=== PATIENT | male | born 1965 | race Caucasian/White ===

== ENCOUNTER → 2017-06-08 08:05 | Outpatient (CLI) | payer OTHER, SELFPAY ==
--- NOTE | 2017-06-08 08:17 | RAD_ITS ---
STUDY: X-RAY CHEST REASON FOR EXAM: Male, 52 years old. History of inflammatory polyarthropathy. TECHNIQUE: PA and lateral views of the chest. COMPARISON: None. FINDINGS: The lungs are clear and expanded. There is no demonstrated pleural abnormality. Normal size heart. Normal mediastinum and dave. Normal visualized pulmonary arteries. Normal visualized aortic arch and descending thoracic aorta. Normal visualized thoracic spine. Metallic clips are seen in the right humeral head most likely secondary to prior rotator cuff surgery. There is no demonstrated abnormality of the visualized soft tissue structures of the upper abdomen. RAD/Chest PA and Lateral IMPRESSION: Normal x-ray examination of the chest. Electronically Signed: Zhang Henderson MD at 11:19 EST Tel [phone], Service support ,
[2017-06-11 04:15] LABS: QNTFERON TB Ag Minus Nil Value < 0 IU/mL (.); QNTFERON TB Ag Value 0.03 IU/mL (.); QNTFERON TB Mitogen Value > 10.00 IU/mL (.); QNTFERON TB Nil Value 0.06 IU/mL (.)
[2017-06-11 10:45] LABS: QNTIFERON TB Gold Negative (Negative)
== END ==
PROVIDERS: Family Provider Physician Assistant; PCP Physician Assistant; Visit Provider Internal Medicine Rheumatology
DX: M06.4 Inflammatory polyarthropathy (principal); M51.37 Other intervertebral disc degeneration, lumbosacral region; M21.40 Flat foot [pes planus] (acquired), unspecified foot; M10.9 Gout, unspecified; I10 Essential (primary) hypertension; F41.9 Anxiety disorder, unspecified; Z79.899 Other long term (current) drug therapy
CPT/HCPCS: 36415; 71046; 86480

== ENCOUNTER → 2017-06-30 08:21 | Outpatient (CLI) | payer OTHER, SELFPAY ==
--- NOTE | 2017-06-30 08:23 | US_ITS ---
STUDY: RENAL ULTRASOUND - COMPLETE REASON FOR EXAM: Male, 52 years old. Flank pain TECHNIQUE: Transverse and longitudinal imaging of the kidneys and bladder was obtained using real-time ultrasound. COMPARISON: None. FINDINGS: RIGHT KIDNEY: The right kidney is normal in location. The right kidney measures 11.6 x 6.2 x 5.2 cm. The renal cortex is normal in appearance. The renal cortex measures 2.0 cm. There is no demonstrated renal mass. There is no dilatation of the collecting system. LEFT KIDNEY: The left kidney is normal in location. The left kidney measures 14.6 x 6.2 x 4.3 cm. The renal cortex is normal in appearance. The renal cortex measures 2.4 cm. There is a benign simple cyst off the midpole of the left kidney measuring 2.9 x 3.1 x 2.8 cm. There is a cyst or prominent extrarenal pelvis on the left measuring 2.1 x 2.7 x 1.8 cm. There is no dilatation of the collecting system. BLADDER: The urinary bladder has a volume of 97 ml. The bladder shows a normal wall thickness. There is no demonstrated mass in the bladder. The right ureteral jet was not demonstrated. The left ureteral jet was not demonstrated. US/Kidney and Bladder IMPRESSION: The left kidney is larger than the right, and a duplicated system cannot be excluded in the left kidney. There is no evidence of hydronephrosis, however there may be a prominent extrarenal pelvis in the lower collecting system on the left side. Electronically Signed: Khalida Fierro MD at 17:10 EST Tel Direct: [phone], Service support ,
== END ==
PROVIDERS: Family Provider Physician Assistant; PCP Physician Assistant; Visit Provider Nurse Practitioner Adult Health
DX: R39.89 Other symptoms and signs involving the genitourinary system (principal); Z87.448 Personal history of other diseases of urinary system
CPT/HCPCS: 76770

== ENCOUNTER → 2017-07-27 15:19 | Outpatient (CLI) | payer OTHER, SELFPAY ==
[2017-07-27 15:51] LABS: Absolute Neutrophil Count 3.3 X10^3/uL (2.0-7.7); Basophil# 0.03 X10^3/uL; Basophil% 0.5 % (0-1); Eosinophil# 0.11 X10^3/uL; Eosinophils% 1.9 % (0-5); Hematocrit 40.3 % (40-54); Hemoglobin 13.9 g/dl (13.0-16.5); Lymphocyte % 30.1 % (19-41); Mean Corp Hgb Conc 34.5 g/gl (32-36); Mean Corpuscular Hgb 31.7 pg (27.0-32.0); Mean Corpuscular Volume 91.8 fL (80-94); Monocyte# 0.53 X10^3/uL; Monocyte% 9.4 % (0-10); Neutrophil # 3.26 X10^3/uL (2.7-7.7); Neutrophil % 57.7 % (47-70); Platelet Count 237 K/mm3 (150-450); RBC Distribution Width CV 13.3 % (11.6-14.6); Red Blood Count 4.39 M/mm3 (4.6-6.2); White Blood Count 5.7 K/mm3 (4.4-11.0)
[2017-07-27 15:54] LABS: POSITIVE COUNT NO; POSITIVE DIFFERENTIAL NO; POSITIVE MORPHOLOGY NO
[2017-07-27 16:24] LABS: AST(SGOT) 28 U/L (15-37); Alanine Aminotransfer ALT/SGPT 49 U/L (16-61); Albumin, Serum 3.5 g/dL (3.2-5.0); Alkaline Phosphatase 47 U/L (45-117); Anion Gap 7 (5-15); BUN 22 mg/dL (7-18); Calcium,Total 8.5 mg/dL (8.5-10.1); Chloride 110 mmol/L (98-107); Creatinine, Serum 0.78 mg/dL (0.70-1.30); EST Glomerular Filtration Rate 109 mL/min (>60); Est Glom Filt Rate - Afr Amer 132 mL/min (>60); Globulin 3.4 g/dL (2.2-4.2); Glucose 90 mg/dL (74-106); PSA,Total- Diagnostic 1.51 ng/mL (0.0-4.0); Protein, Total 6.9 g/dL (6.4-8.2); Sodium Level 144 mmol/L (136-145)
== END ==
PROVIDERS: Family Provider Nurse Practitioner Primary Care; PCP Nurse Practitioner Primary Care; Visit Provider Nurse Practitioner Adult Health
DX: R97.20 Elevated prostate specific antigen [PSA] (principal); M06.09 Rheumatoid arthritis without rheumatoid factor, multiple sites; M51.37 Other intervertebral disc degeneration, lumbosacral region; M21.40 Flat foot [pes planus] (acquired), unspecified foot; M10.9 Gout, unspecified; I10 Essential (primary) hypertension; F41.9 Anxiety disorder, unspecified
CPT/HCPCS: 36415; 80053; 84153; 85025

== ENCOUNTER → 2017-10-26 08:05 | Outpatient (CLI) | payer OTHER, SELFPAY ==
[2017-10-26 10:24] LABS: Absolute Lymphocyte Count 1.62 X10^3/ul (0.83-4.51); Absolute Neutrophil Count 2.6 X10^3/uL (2.0-7.7); Basophil# 0.03 X10^3/uL; Basophil% 0.6 % (0-1); Eosinophil# 0.12 X10^3/uL; Eosinophils% 2.5 % (0-5); Hematocrit 44.8 % (40-54); Hemoglobin 14.9 g/dl (13.0-16.5); Lymphocyte # 1.62 X10^3/ul (4.0); Lymphocyte % 34.3 % (19-41); Mean Corp Hgb Conc 33.3 g/gl (32-36); Mean Corpuscular Hgb 31.4 pg (27.0-32.0); Mean Corpuscular Volume 94.3 fL (80-94); Mean Platelet Vol. 11.5 fl (6.2-12.0); Monocyte# 0.39 X10^3/uL; Monocyte% 8.3 % (0-10); Neutrophil # 2.55 X10^3/uL (2.7-7.7); Neutrophil % 54.1 % (47-70); Platelet Count 197 K/mm3 (150-450); RBC Distribution Width CV 13.5 % (11.6-14.6); Red Blood Count 4.75 M/mm3 (4.6-6.2); White Blood Count 4.7 K/mm3 (4.4-11.0)
[2017-10-26 10:36] LABS: POSITIVE COUNT NO; POSITIVE DIFFERENTIAL NO; POSITIVE MORPHOLOGY NO
[2017-10-26 10:38] LABS: AST(SGOT) 29 U/L (15-37); Alanine Aminotransfer ALT/SGPT 59 U/L (16-61); Albumin, Serum 3.5 g/dL (3.2-5.0); Alkaline Phosphatase 38 U/L (45-117); Anion Gap 8 (5-15); BUN 19 mg/dL (7-18); Calcium,Total 8.5 mg/dL (8.5-10.1); Chloride 106 mmol/L (98-107); Creatinine, Serum 0.79 mg/dL (0.70-1.30); EST Glomerular Filtration Rate 108 mL/min (>60); Est Glom Filt Rate - Afr Amer 131 mL/min (>60); Globulin 3.4 g/dL (2.2-4.2); Glucose 108 mg/dL (74-106); Potassium 4.1 mmol/L (3.5-5.1); Protein, Total 6.9 g/dL (6.4-8.2); Sodium Level 142 mmol/L (136-145)
== END ==
PROVIDERS: Family Provider Nurse Practitioner Primary Care; PCP Nurse Practitioner Primary Care; Visit Provider Internal Medicine Rheumatology
DX: M10.9 Gout, unspecified (principal); I10 Essential (primary) hypertension; F41.9 Anxiety disorder, unspecified; Z79.899 Other long term (current) drug therapy
CPT/HCPCS: 36415; 80053; 85025

== ENCOUNTER 2017-11-23 11:30 | Emergency (ER) | payer OTHER, SELFPAY ==
[2017-11-23 11:32] VITALS: BP 109/76; PULSE 94; RESP 15; TEMP 36.4; O2SAT 98; BMI 27.9
--- NOTE | 2017-11-23 12:52 | EKG12_ITS ---
Test Reason : Blood Pressure : / mmHG Vent. Rate : 070 BPM Atrial Rate : 070 BPM P-R Int : 160 ms QRS Dur : 086 ms QT Int : 374 ms P-R-T Axes : 025 069 050 degrees QTc Int : 403 ms Normal sinus rhythm Normal ECG Confirmed by ALFREDA WYATT, DEEPAK ([id number]), material expeditor FABIO GALDAMEZ ([id number]) on 11/25/2017 1:37:44 PM Referred By: TANG Confirmed By:DEEPAK GANT MD
[2017-11-23] MEDS: Morphine 4 MG/ML Syringe IV (13:23)
[2017-11-23] MEDS: 0.9% Normal Saline 1,000 ML 1000 ML IV (13:23)
[2017-11-23] MEDS: Ondansetron 4 MG/2 ML Vial IV (13:24)
[2017-11-23 13:43] LABS: Bacteria 0 SEEN /hpf (None Seen); Mucous, Urine 0 SEEN /hpf (<or=2+); Squamous Epithelial Cells - UA 0 SEEN /hpf (0-5); White Blood Cells 0 SEEN /hpf (0-5)
[2017-11-23 13:46] LABS: Color, Urine Yellow (Yellow); Glucose, Dipstick Normal (Normal); Ketone-Dipstick Negative (Negative); Leukocyte Esterase-Dipstick Negative /ul (Negative); Nitrite-Dipstick Negative (Negative); Occult Blood-Urine Negative /ul (Negative); Protein-Dipstick Negative (Negative); Urine Bilirubin Dipstick Negative (Negative); Urine Clarity Clear (Clear); Urine Urobilinogen Normal (Normal)
[2017-11-23 13:49] LABS: Absolute Lymphocyte Count 2.01 X10^3/ul (0.83-4.51); Absolute Neutrophil Count 7.6 X10^3/uL (2.0-7.7); Basophil# 0.03 X10^3/uL; Basophil% 0.3 % (0-1); Eosinophil# 0.08 X10^3/uL; Eosinophils% 0.8 % (0-5); Hematocrit 49.8 % (40-54); Hemoglobin 16.6 g/dl (13.0-16.5); Lymphocyte # 2.01 X10^3/ul (4.0); Lymphocyte % 19.1 % (19-41); Mean Corp Hgb Conc 33.3 g/gl (32-36); Mean Corpuscular Hgb 31.9 pg (27.0-32.0); Mean Corpuscular Volume 95.8 fL (80-94); Mean Platelet Vol. 10.6 fl (6.2-12.0); Monocyte# 0.84 X10^3/uL; Neutrophil # 7.57 X10^3/uL (2.7-7.7); Neutrophil % 71.7 % (47-70); Platelet Count 240 K/mm3 (150-450); RBC Distribution Width CV 13.6 % (11.6-14.6); RBC Distribution Width SD 46.9 fl (35.1-43.9); White Blood Count 10.5 K/mm3 (4.4-11.0)
[2017-11-23] MEDS: Lidocaine 4% 5 ML Ampul 2 ML INHALATION (13:49)
[2017-11-23 13:51] LABS: POSITIVE COUNT NO; POSITIVE DIFFERENTIAL NO; POSITIVE MORPHOLOGY NO
[2017-11-23 13:58] LABS: International Normalized Ratio 0.9; Prothrombin Time (Protime)PT. 12.1 SECONDS (11.7-14.9)
[2017-11-23 14:01] LABS: Red Blood Cells-Urine 0-5 SEEN /hpf (0-5)
[2017-11-23 14:02] LABS: ALB/GLOB Ratio 0.9 RATIO (0.9-2.4); AST(SGOT) 19 U/L (15-37); Alanine Aminotransfer ALT/SGPT 43 U/L (16-61); Albumin, Serum 3.9 g/dL (3.2-5.0); Alkaline Phosphatase 54 U/L (45-117); Anion Gap 5 (5-15); BUN 23 mg/dL (7-18); BUN/Creat Ratio 24.2 RATIO (10-20); Calcium,Total 9.6 mg/dL (8.5-10.1); Chloride 100 mmol/L (98-107); Creatinine, Serum 0.95 mg/dL (0.70-1.30); EST Glomerular Filtration Rate 87 mL/min (>60); Est Glom Filt Rate - Afr Amer 106 mL/min (>60); Estimated Creatinine Clearance 91.78 ml/min; Globulin 4.2 g/dL (2.2-4.2); Glucose 98 mg/dL (74-106); Lipase 182 U/L (73-393); Potassium 4.3 mmol/L (3.5-5.1); Protein, Total 8.1 g/dL (6.4-8.2); Sodium Level 138 mmol/L (136-145)
[2017-11-23] MEDS: LORazepam 2 MG/ML Syringe 1 MG IV (14:15)
--- NOTE | 2017-11-23 14:26 | CT_ITS ---
STUDY: CTA CHEST REASON FOR EXAM: Male, 52 years old. Acute substernal chest pain RADIATION DOSAGE (If Supplied By Facility): CTDIvol = ( 12.80 ) mGy, DLP = ( 667.13 ) mGycm TECHNIQUE: The examination was performed with the intravenous administration of 100ML ml of Isovue 300 contrast material. Post-processing of the angiographic images was performed, with multiplanar reformation and 3D reconstruction. Individualized dose optimization techniques were used for this CT. COMPARISON: None. FINDINGS: Normal enhancement of the main pulmonary artery and right and left pulmonary arteries. Normal enhancement of the bilateral peripheral pulmonary arteries. There is no demonstrated pulmonary embolism. Normal thoracic aorta and visualized great vessels. There is no demonstrated aortic dissection. Normal heart and pericardium. Normal mediastinum. Normal hilar regions. There is peribronchial thickening. The lungs are well expanded. Chronic interstitial changes noted in both lung mckenzie, there is fibrotic scarring in the left lung base. No organized infiltrate or suspicious noncalcified mass or nodule noted. Normal pleura. Normal chest wall structures. There are degenerative changes of thoracic spine. Normal visualized upper abdomen. CT/CTA Chest W/WO Contrast IMPRESSION: No demonstrated PE, or thoracic aortic aneurysm or dissection Chronic interstitial changes in both lung mckenzie, no superimposed acute pulmonary process Evidence of chronic bronchitis Electronically Signed: Jose Willis MD at 15:40 EDT , Service support ,
--- NOTE | 2017-11-23 15:59 | ED.DCSUM_ITS ---
- ER Visit Summary Date of Service: 11/23/17 Chief Complaint: [Spitting up coffee ground material] History of Present Illness: The patient is a 52 M [who woke up this morning and spit out a bunch of dirt and coffee ground appearing material. No lightheadedness or dizziness. He has been having back pain epigastric abdominal pain for quite some time. He does have rheumatoid arthritis and is on Enbrel as well as methotrexate. He is prescribed prednisone and meloxicam but has not taken it for quite some time. He is in pain management done injection recently did not help his back pain.] Physical Examination: [] Afebrile vital signs within acceptable limits WN WD NAD PERRL EOMI MMM NECK supple and nontender, no masses RRR no murmur rub or gallop, no peripheral edema, symmetric radial pulses CTAB no respiratory distress ABDOMEN mild epigastric tenderness, normal bowel sounds, no distension, no rebound or guarding SKIN is warm and dry no rashes Alert and Oriented x3, CN II-XII in tact, no motor or sensory deficits, gait normal No lymphadenopathy Test Results: [] Emergency Department Course and Treatment: [Screening labs were obtained and were unremarkable. NG was placed and was clear. At that time because of his back pain and unclear nature of this breathing bleeding CTA was performed show no evidence of PE or other acute abnormality in the lungs. Patient was feeling much better. I will refer him to gastroenterology. I did give him careful indications for which she should return to the emergency department invited them to come back at any time for any concerns.] Treatment Plan: [] Disposition: [Discharge] Impression: [Hematemesis] This note was generated with [employer] dictation software. It may contain incorrect words, spelling, and punctuation that were not noted in review of the chart prior to signing ED Disposition - Plan for ED Patient: Chief Complaint: GI Bleed Referrals: Jen Mcadams, SUMMER-C [Primary Care Provider] -
--- NOTE | 2017-11-23 16:05 | ED.DEP ---
ED Disposition - Plan for ED Patient: Chief Complaint: GI Bleed Instructions: ED Bleed UGI Stable Referrals: Jen Mcadams, SUMMER-Sariah [Primary Care Provider] - Home Sampson MD [NON-STAFF] - 5-7 Days
[2017-11-23 16:25] VITALS: BP 139/79; PULSE 85; RESP 18; O2SAT 100
== END 2017-11-23 16:26 | disposition home or self-care (01) ==
LOC: ED 13:04
PROVIDERS: Emergency Provider Emergency Medicine; Family Provider Nurse Practitioner Primary Care; PCP Nurse Practitioner Primary Care
DX: K92.0 Hematemesis (principal); R10.13 Epigastric pain; M54.9 Dorsalgia, unspecified; M06.9 Rheumatoid arthritis, unspecified; I10 Essential (primary) hypertension; M10.9 Gout, unspecified; Z79.899 Other long term (current) drug therapy
CPT/HCPCS: 71275; 80053; 81001; 83690; 85025; 85610; 93005; 96361; 96374; 96375; 99285; J7030; Q9967; A4216; J2405

== ENCOUNTER → 2018-01-12 15:20 | Outpatient (CLI) | payer OTHER, SELFPAY ==
--- NOTE | 2018-01-12 15:25 | MRI_ITS ---
STUDY: MRI LUMBAR SPINE WITHOUT CONTRAST REASON FOR EXAM: Male, 53 years old. Spinal stenosis TECHNIQUE: Standardized fat and water weighted pulse sequences were obtained in the sagittal and axial planes. COMPARISON: None FINDINGS: No evidence for acute fracture or subluxation. There is interosseous hemangioma within the L4 vertebral body T12-L1: Normal endplates. Normal disc height, hydration and morphology. Normal bilateral facet joints. Normal central canal and bilateral lateral recesses. Normal bilateral intervertebral neural foramina. Normal lumbar lordosis. There is no substantial scoliosis. Normal conus medullaris that terminates at T12-L1 L1-2: Normal endplates. Normal disc height, hydration and morphology. Normal bilateral facet joints. Normal central canal and bilateral lateral recesses. Normal bilateral intervertebral neural foramina. L2-3: Normal endplates. Normal disc height, hydration and minimal annular bulge with tiny right foraminal annular tear and disc protrusion. Normal bilateral facet joints. Normal central canal and bilateral lateral recesses.. Mild right neuroforaminal encroachment L3-4: Normal endplates. Normal disc height, desiccation and mild annular bulge. Mild facet arthropathy.. Moderate bilateral recess and mild neural foraminal encroachment L4-5: Normal endplates. Normal disc height, desiccation and moderate bulging disc osteophyte complex. Bilateral facet arthropathy and mild thickening of ligamenta flava. Mild narrowing of the central canal. Moderate bilateral recess and neuroforaminal stenosis. L5-S1: Normal endplates. Normal disc height, hydration and minor annular bulge with tiny central disc protrusion. Mild facet arthropathy.. Normal central canal. Mild bilateral recess encroachment. Normal bilateral intervertebral neural foramina. Normal visualized sacral ala. Normal visualized paraspinous soft tissue structures. MRI/Spine Lumbar (Routine) IMPRESSION: No evidence for acute fracture or dictation per Multilevel disc degeneration and spinal stenosis secondary to disc disease and bony hypertrophy. Findings as above Electronically Signed: Malick Wolfe MD at 17:06 EDT , Service support ,
--- NOTE | 2018-01-12 15:25 | MRI_ITS ---
STUDY: MRI THORACIC SPINE WITHOUT CONTRAST REASON FOR EXAM: Male, 53 years old. Mid back pain TECHNIQUE: Standardized fat and water weighted pulse sequences were obtained in the sagittal and axial planes. COMPARISON: None. FINDINGS: Normal kyphosis of the thoracic spine. There is no substantial scoliosis. There is minor chronic wedging of superior endplate of T5. There is no evidence for acute fracture or other significant bony pathology. The disc space heights are well-maintained. There is mild diffuse desiccation of the discs at all levels. There is no focal disc protrusion. There is spinal stenosis posteriorly at T9-T10 and T10-11 due to thickening of the ligaments Normal visualized thoracic cord. Normal conus medullaris that terminates at T12-L1 The soft tissue structures are unremarkable. MRI/Spine Thoracic (Routine) IMPRESSION: Minor chronic wedging of superior endplate of T5 No evidence for acute fracture or other significant bony pathology. There is spinal stenosis at T9-10 and T10-11 due to thickening of the posterior ligaments No focal disc protrusion or cord compression Electronically Signed: Malick Wolfe MD at 16:47 EDT , Service support ,
== END ==
PROVIDERS: Family Provider Nurse Practitioner Primary Care; PCP Nurse Practitioner Primary Care; Visit Provider Nurse Practitioner Primary Care
DX: M48.05 Spinal stenosis, thoracolumbar region (principal)
CPT/HCPCS: 72146; 72148

== ENCOUNTER 2018-05-05 13:52 | Emergency (ER) | payer OTHER, SELFPAY ==
[2018-05-05 13:53] VITALS: BP 143/83; PULSE 79; RESP 16; TEMP 36.8; O2SAT 96; BMI 29.9
[2018-05-05] MEDS: Diphth,Pertuss(Acell),Tet Vac 0.5 ML Vial IM (14:43)
--- NOTE | 2018-05-05 14:45 | DCINST.ED_ITS ---
ED Disposition - Plan for ED Patient: Disposition: Home or Assisted Living Chief Complaint: Laceration Instructions: ED Laceration Scalp Stitch Or Stap Referrals: Jen Mcadams, MECHANICAL MAINTENANCE FOREMAN-C [Primary Care Provider] -
--- NOTE | 2018-05-05 14:45 | ED.DCSUM_ITS ---
- ER Visit Summary Date of Service: 05/05/18 Chief Complaint: Head injury History of Present Illness: The patient is a 53 M who presents with a head injury. 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 He sustained a laceration to his scalp. Denies LOC. His tetanus is unknown. Denies any symptoms other than the laceration. Physical Examination: Vital signs are reviewed. Head exam reveals a 6 cm in total length V-shaped laceration to the crown of the scalp. There is no bleeding at this time. His GCS is 15. Neurologic exam normal. Test Results: None performed Emergency Department Course and Treatment: The patient's tetanus was updated. 10, 4?0 simple interrupted sutures were placed. See T-sheet for further details. He will have these out in 7 days. Worker's Compensation forms were completed. Treatment Plan: [] Disposition: Discharge Impression: Scalp laceration, 6 cm Laceration repair by ED physician This note was generated with [employer] dictation software. It may contain incorrect words, spelling, and punctuation that were not noted in review of the chart prior to signing ED Disposition - Plan for ED Patient: Chief Complaint: Laceration Referrals: Jen Mcadams NP-C [Primary Care Provider] -
== END 2018-05-05 15:02 | disposition home or self-care (01) ==
LOC: ED 14:59
PROVIDERS: Emergency Provider Emergency Medicine; Family Provider Nurse Practitioner Primary Care; PCP Nurse Practitioner Primary Care
DX: S01.01XA Laceration without foreign body of scalp, initial encounter (principal); W22.8XXA Striking against or struck by other objects, initial encounter; Y93.89 Activity, other specified; Y92.9 Unspecified place or not applicable; Y99.0 Civilian activity done for income or pay; I10 Essential (primary) hypertension; M10.9 Gout, unspecified; Z79.899 Other long term (current) drug therapy
CPT/HCPCS: 12002; 90715; 99282

== ENCOUNTER 2018-08-07 10:07 | Emergency (ER) | payer OTHER, SELFPAY ==
[2018-08-07 10:07] VITALS: BP 144/82; PULSE 68; RESP 18; TEMP 36.6; O2SAT 98; BMI 28.4
[2018-08-07 10:14] VITALS: BP 137/88; PULSE 65; RESP 17
--- NOTE | 2018-08-07 10:18 | EKG12_ITS ---
Test Reason : CP Blood Pressure : / mmHG Vent. Rate : 061 BPM Atrial Rate : 061 BPM P-R Int : 170 ms QRS Dur : 082 ms QT Int : 410 ms P-R-T Axes : 030 073 054 degrees QTc Int : 412 ms Normal sinus rhythm Normal ECG Confirmed by ALFREDA WYATT, DEEPAK ([id number]), image editor MARTHA COPPOLA ([id number]) on 08/09/2018 1:17:26 PM Referred By: URIAH Confirmed By:DEEPAK GANT MD
--- NOTE | 2018-08-07 10:18 | RAD_ITS ---
STUDY: X-RAY CHEST REASON FOR EXAM: Male, 53 years old. Chest pain TECHNIQUE: Single frontal view of the chest. COMPARISON: June 08, 2017 FINDINGS: The lungs are clear and expanded. There is no demonstrated pleural abnormality. Normal size heart. Normal mediastinum and dave. Normal visualized pulmonary arteries. Normal visualized aortic arch and descending thoracic aorta. Normal visualized thoracic spine. Right rotator cuff repair. Remote deformity of the left clavicle. There is no demonstrated abnormality of the visualized soft tissue structures of the upper abdomen. RAD/Chest 1 View (Portable) IMPRESSION: No acute pulmonary findings. Electronically Signed: Kiko Mckinney MD at 10:48 EDT Tel , Service support ,
--- NOTE | 2018-08-07 10:21 | ED.DCSUM_ITS ---
- ER Visit Summary Date of Service: 08/07/18 Chief Complaint: Chest pain History of Present Illness: The patient is a 53 M with history of anxiety presents to the emergency department chest pain. Patient states of the past 5 days, he had intermittent chest pain. He also admits to some mild shortness of breath. He states that his anxiety has been rather significant. He is been under a lot of stress at work. The symptoms are not exertional. He states if he rests, they will go away. If he concentrates on his breathing it seems to make it better. He has no history of coronary vascular disease. He does have history of hypertension. He has no family history of heart disease. He is also been complaining of some midepigastric pain and pain with eating. Physical Examination: Vital signs reviewed General: Well-nourished, well-developed Head: Normocephalic, atraumatic Eyes: Pupils equal and reactive, extraocular muscles intact Neck, supple, no lymphadenopathy Heart: Regular rate and rhythm Respiratory: No distress, clear bilaterally Abdomen: Soft, nontender, nondistended, no peritoneal signs Back: Nontender Extremities: Nontender, no edema, no cords Skin: Normal color no rash Neuro: Alert and oriented, no focal or lateralizing deficits Test Results: [] Emergency Department Course and Treatment: The patient's chest pain does not seem cardiac. However, given his age I did do workup. EKG was unremarkable. There is no acute ischemia. Normal axis and intervals. Patient's only risk factor is hypertension which is well controlled. He is been under significant amount of stress lately. He had to take his son to [place] for hospitalization last week and has been having difficulties at work. He was given 0.5 mg of Ativan. On reevaluation he was symptom-free. Screening labs are unremarkable. The patient is resting comfortably. He had constant pain for 8 hours today. My suspicion for acute coronary syndrome is low. I do feel that he is safe for outpatient therapy. He was counseled on concerning symptoms and reasons to return. He has a heart score of 2. He will be discharged home. Treatment Plan: [] Disposition: Discharge Impression: 1. Atypical chest pain This note was generated with Vibes[employer] software. It may contain incorrect words, spelling, and punctuation that were not noted in review of the chart prior to signing ED Disposition - Plan for ED Patient: Instructions: ED Chest Pain Atypical Unkn Cause Prescriptions: Omeprazole 40 mg PO DAILY #30 capsule. Lorazepam [Ativan] 0.5 mg PO TID #10 tab Sucralfate [Carafate] 1 gm PO 4X/DAY #60 tab Referrals: Jen Mcadams, SENIOR INTERACTIVE PRODUCER-C [Primary Care Provider] -
[2018-08-07 10:29] LABS: Absolute Lymphocyte Count 1.43 X10^3/ul (0.83-4.51); Absolute Neutrophil Count 3.5 X10^3/uL (2.0-7.7); Basophil# 0.03 X10^3/uL; Basophil% 0.5 % (0-1); Eosinophil# 0.05 X10^3/uL; Eosinophils% 0.9 % (0-5); Hematocrit 45.3 % (40-54); Hemoglobin 15.4 g/dl (13.0-16.5); Lymphocyte # 1.43 X10^3/ul (4.0); Lymphocyte % 26.2 % (19-41); Mean Corpuscular Hgb 30.9 pg (27.0-32.0); Mean Platelet Vol. 11.1 fl (6.2-12.0); Monocyte# 0.49 X10^3/uL; Neutrophil # 3.45 X10^3/uL (2.7-7.7); Neutrophil % 63.2 % (47-70); Platelet Count 199 K/mm3 (150-450); RBC Distribution Width CV 13.3 % (11.6-14.6); RBC Distribution Width SD 43.7 fl (35.1-43.9); Red Blood Count 4.98 M/mm3 (4.6-6.2); White Blood Count 5.5 K/mm3 (4.4-11.0)
[2018-08-07] MEDS: LORazepam 2 MG/ML Syringe 0.5 MG IV (10:32)
[2018-08-07] MEDS: Aspirin 81 MG TAB.CHEW 324 MG PO (10:32)
[2018-08-07] MEDS: 0.9% Normal Saline 1,000 ML 150 ML IV (10:33)
[2018-08-07 10:47] LABS: ALB/GLOB Ratio 1.1 RATIO (0.9-2.4); AST(SGOT) 23 U/L (15-37); Alanine Aminotransfer ALT/SGPT 37 U/L (16-61); Albumin, Serum 3.8 g/dL (3.2-5.0); Alkaline Phosphatase 50 U/L (45-117); Anion Gap 2 (5-15); BUN 17 mg/dL (7-18); BUN/Creat Ratio 17.6 RATIO (10-20); Calcium,Total 8.9 mg/dL (8.5-10.1); Chloride 106 mmol/L (98-107); Creatinine, Serum 0.97 mg/dL (0.70-1.30); EST Glomerular Filtration Rate 86 mL/min (>60); Est Glom Filt Rate - Afr Amer 104 mL/min (>60); Estimated Creatinine Clearance 88.85 ml/min; Globulin 3.4 g/dL (2.2-4.2); Glucose 107 mg/dL (74-106); Lipase 130 U/L (73-393); Protein, Total 7.2 g/dL (6.4-8.2); Sodium Level 138 mmol/L (136-145)
[2018-08-07 11:13] VITALS: BP 125/86; PULSE 63; PULSE 65; RESP 13; RESP 20; O2SAT 98; O2SAT 99
== END 2018-08-07 11:29 | disposition home or self-care (01) ==
LOC: ED 11:24
PROVIDERS: Emergency Provider Emergency Medicine; Family Provider Family Medicine; PCP Family Medicine
DX: R07.89 Other chest pain (principal); F41.9 Anxiety disorder, unspecified; I10 Essential (primary) hypertension; K21.9 Gastro-esophageal reflux disease without esophagitis
CPT/HCPCS: 71045; 80053; 83690; 84484; 85025; 93005; 96361; 96374; 99285; J7030; A4216

== ENCOUNTER → 2018-08-28 09:42 | Outpatient (CLI) | payer OTHER, SELFPAY ==
[2018-08-07 10:07] VITALS: BMI 28.4
[2018-08-28 11:25] LABS: Vitamin D,25 Hydroxy 49.1 ng/mL (29.95-100.01)
[2018-08-31 08:10] LABS: Testosterone, Free 5.95 ng/dL (5.00-21.00)
[2018-09-01 12:55] LABS: Testosterone, % Free 2.93 % (1.50-4.20); Testosterone, Total 203 ng/dL (264-916)
== END ==
PROVIDERS: Family Provider Family Medicine; PCP Family Medicine; Visit Provider Family Medicine
DX: E29.1 Testicular hypofunction (principal); E55.9 Vitamin D deficiency, unspecified
CPT/HCPCS: 36415; 82306; 84402; 84403

== ENCOUNTER → 2018-10-25 09:14 | Outpatient (CLI) | payer OTHER, SELFPAY ==
[2018-10-25 12:33] LABS: Erythrocyte Sedimentation Rate 5 mm/hr (0-20)
[2018-10-25 12:53] LABS: Vitamin B12 292 pg/mL (211-911)
[2018-10-25 13:19] LABS: ALB/GLOB Ratio 1.1 RATIO (0.9-2.4); AST(SGOT) 21 U/L (15-37); Alanine Aminotransfer ALT/SGPT 32 U/L (16-61); Albumin, Serum 3.8 g/dL (3.2-5.0); Alkaline Phosphatase 49 U/L (45-117); Anion Gap 9 (5-15); BUN 26 mg/dL (7-18); BUN/Creat Ratio 30.1 RATIO (10-20); CRP < 2.90 mg/L (0.0-3.0); Chloride 106 mmol/L (98-107); Creatinine, Serum 0.86 mg/dL (0.70-1.30); EST Glomerular Filtration Rate 97 mL/min (>60); Est Glom Filt Rate - Afr Amer 118 mL/min (>60); Globulin 3.5 g/dL (2.2-4.2); Glucose 107 mg/dL (74-106); Potassium 4.2 mmol/L (3.5-5.1); Protein, Total 7.3 g/dL (6.4-8.2); Rheumatoid Factor < 10.0 IU/mL (<15); Sodium Level 141 mmol/L (136-145)
[2018-10-28 14:06] LABS: Testosterone, % Free 3.29 % (1.50-4.20); Testosterone, Free 3.75 ng/dL (5.00-21.00)
[2018-10-29 14:00] LABS: CCP IgG Antibodies < 1 units (0-19); Testosterone, Total 114 ng/dL (264-916)
== END ==
PROVIDERS: Family Provider Family Medicine; PCP Family Medicine; Visit Provider Family Medicine
DX: I10 Essential (primary) hypertension (principal); E29.1 Testicular hypofunction; M06.9 Rheumatoid arthritis, unspecified; G62.9 Polyneuropathy, unspecified
CPT/HCPCS: 36415; 80053; 82607; 84402; 84403; 85652; 86140; 86200; 86431

== ENCOUNTER → 2018-12-21 12:10 | Outpatient (CLI) | payer OTHER, SELFPAY ==
--- NOTE | 2018-12-21 13:53 | NEURO ---
NCS and/or EMG Patient Report Ordering Doctor: Mat Kitchen DATE OF SERVICE: 12/21/18 Roldan Patton is a 53-year-old male presents for electrodiagnostic testing of the lower limbs. He reports numbness and tingling in the thighs and buttocks which is intermittent. Electrodiagnostic findings: Peroneal motor nerve demonstrates normal distal latency, amplitude and conduction velocity bilaterally. Normal tibial motor response bilaterally. Normal peroneal and tibial F wave. Borderline prolonged H reflex bilaterally. Sensory responses within normal limits. On needle EMG, all muscles tested in the lower limbs as well as the lumbar paraspinal showed no evidence of denervation with normal motor unit action potentials. Next Electrodiagnostic impression: This is a normal electrodiagnostic study in the lower limbs. There is no electrodiagnostic evidence for peripheral neuropathy or lumbosacral radiculopathy. If there are any further questions, please do not hesitate to contact me.
== END ==
PROVIDERS: Family Provider Family Medicine; PCP Family Medicine; Referring Provider Family Medicine; Visit Provider Family Medicine
DX: R20.2 Paresthesia of skin (principal); G62.9 Polyneuropathy, unspecified
CPT/HCPCS: 95886; 95913

== ENCOUNTER → 2019-01-25 09:57 | Outpatient (CLI) | payer OTHER, SELFPAY ==
[2019-01-25 12:11] LABS: Absolute Lymphocyte Count 1.49 X10^3/uL (0.83-4.51); Absolute Neutrophil Count 4.4 X10^3/uL (2.0-7.7); Basophil# 0.06 X10^3/uL; Basophil% 0.9 % (0-1); Eosinophil# 0.08 X10^3/uL; Eosinophils% 1.2 % (0-5); Hematocrit 48.8 % (40-54); Hemoglobin 16.1 g/dL (13.0-16.5); Lymphocyte # 1.49 X10^3/ul (4.0); Mean Corpuscular Hgb 30.5 pg (27.0-32.0); Mean Corpuscular Volume 92.4 fL (80-94); Mean Platelet Vol. 11.8 fl (6.2-12.0); Monocyte# 0.46 X10^3/uL; Monocyte% 7.1 % (0-10); NRBC Flagged by Analyzer 0 % (0-5); Neutrophil # 4.36 X10^3/uL (2.7-7.7); Neutrophil % 67.5 % (47-70); Platelet Count 224 K/mm3 (150-450); RBC Distribution Width CV 12.9 % (11.6-14.6); RBC Distribution Width SD 43.8 fl (35.1-43.9); Red Blood Count 5.28 M/mm3 (4.6-6.2); White Blood Count 6.5 K/mm3 (4.4-11.0)
[2019-01-25 12:22] LABS: ALB/GLOB Ratio 0.9 RATIO (0.9-2.4); AST(SGOT) 16 U/L (15-37); Alanine Aminotransfer ALT/SGPT 32 U/L (16-61); Albumin, Serum 3.5 g/dL (3.2-5.0); Alkaline Phosphatase 51 U/L (45-117); Anion Gap 4 (5-15); BUN 12 mg/dL (7-18); BUN/Creat Ratio 13.4 RATIO (10-20); Calcium,Total 8.6 mg/dL (8.5-10.1); Chloride 109 mmol/L (98-107); EST Glomerular Filtration Rate 93 mL/min (>60); Est Glom Filt Rate - Afr Amer 113 mL/min (>60); Globulin 3.7 g/dL (2.2-4.2); Glucose 105 mg/dL (74-106); Protein, Total 7.2 g/dL (6.4-8.2); Sodium Level 140 mmol/L (136-145)
[2019-01-31 15:18] LABS: Testosterone, Free 54.81 ng/dL (5.00-21.00)
[2019-01-31 15:22] LABS: Testosterone, Total 1048 ng/dL (264-916)
[2019-01-31 15:23] LABS: Testosterone, % Free 5.23 % (1.50-4.20)
== END ==
PROVIDERS: Family Provider Family Medicine; PCP Family Medicine; Visit Provider Family Medicine
DX: E29.1 Testicular hypofunction (principal); Z51.81 Encounter for therapeutic drug level monitoring
CPT/HCPCS: 36415; 80053; 84402; 84403; 85025

== ENCOUNTER 2019-02-02 07:15 | Day surgery (SDC) | payer OTHER, SELFPAY ==
[2019-01-30 14:12] VITALS: BMI 28.4
[2019-02-02 07:35] VITALS: BP 131/90; PULSE 68; RESP 16; TEMP 36.7; O2SAT 100; BMI 29.0
[2019-02-02] MEDS: Lactated Ringers 1,000 ML 100 ML IV (07:44)
--- NOTE | 2019-02-02 07:55 | PCM.HP.BLA ---
Problem List (1) GERD (gastroesophageal reflux disease) Status: Acute Qualifiers: Esophagitis presence: esophagitis presence not specified Qualified Code(s): K21.9 - Gastro-esophageal reflux disease without esophagitis History and Physical Date of Admission: 02/02/19 Intake Vital Signs 01/30/19 Body Mass Index (BMI) 28.4 01/30/19 Height 5 ft 10 in 01/30/19 Weight: 200 lb 3 oz 01/30/19 Body Mass Index (BMI) 28.7 01/30/19 Blood Pressure 115/75 01/30/19 Blood Pressure Location Rt brachial 01/30/19 Respiratory Rate 18 01/30/19 Pulse Rate 79 01/30/19 Pulse Ox 96 Intake Visit Reasons: Reflux Chief Complaint: epigastric pain/ gerd Corncob Pipe Supervisor Required: No Is patient in pain?: No Allergies erythromycin base Allergy (Verified 01/30/19 14:09) Hives Penicillins [PCN] Allergy (Verified 01/30/19 14:09) Hives Medications Allopurinol 1 tab PO DAILY 11/23/17 [History Confirmed 01/30/19] Lisinopril 20 mg PO DAILY 11/23/17 [History Confirmed 01/30/19] Escitalopram Oxalate 10 mg PO DAILY 08/07/18 [History Confirmed 01/30/19] Lorazepam [Ativan] 0.5 mg PO TID #10 tab 08/07/18 [Rx Confirmed 01/30/19] esomeprazole magnesium 20 mg capsule,delayed release 40 mg PO DAILY cap 01/30/19 [History Confirmed 01/30/19] sucralfate 1 gram tablet 1 g PO QACHS #120 tab 01/30/19 [Rx Confirmed 01/30/19] PFSH Medical History (Updated 01/30/19 @ 14:00 by Tia Tijerina) Anxiety (Acute) GERD (gastroesophageal reflux disease) (Acute) HTN (hypertension) (Chronic) Surgical History (Updated 01/30/19 @ 14:00 by Tia Tijerina) History of colonoscopy (Acute ~2012) History of esophagogastroduodenoscopy (EGD) (Acute) History of kidney surgery (Acute) History of repair of right rotator cuff (Acute) Family History (Updated 01/30/19 @ 14:00 by Tia Tijerina) Mother Hypertension Social History (Updated 02/01/19 @ 09:42 by Uriel Hooker MD) Smoking Status: Never smoker HPI HPI HPI: GUILLERMINA KRAFT, is a 54 M who presents to the office today for HPI HPI Surgical H&P: Yes HPI: GUILLERMINA KRAFT, is a 54 M who presents to the office today for GERD. Patient notes that he is having epigastric pain and reflux. He says this is been going on for a long time. He was started on Nexium and he thinks Carafate but he was never actually taken the Carafate. He reports the Nexium has helped somewhat. He also takes daily ibuprofen. ROS General General: Yes fatigue; no weight change, appetite, colon cancer, breast cancer or weakness HEENT HEENT: No difficulty swallowing, eye injury, eye surgery, swollen glands or hoarseness Endo Endocrine: No thyroid disease, diabetes mellitus, thyroid cancer, Hair loss, heat intolerance or cold intolerance Cardio Cardiovascular: Yes high blood pressure; no murmur, pacemaker, heart disease, atrial fibrillation, heart attack, heart stent, palpitations, shortness of breat with exertion or chest pain Psych Psychiatric: Yes anxiety; no depression or hearing voices Resp Respiratory: No shortness of breath, No sleep apnea, Yes cough, No COPD, No asthma, No emphysema, No wheezing Gastro Gastrointestinal: Yes abdominal pain, Yes nausea or vomiting, No diarrhea, No constipation, No blood in stool, Yes acid reflux, No hemorrhoids, No ulcers, No gallbladder problem, No black,tarry stools Ben Hematologic: No blood thinners, No blood disorders, No bleeding, No anemia, No blood clots Neuro Neurologic: No weakness Exam Const General: cooperative Orientation: alert, oriented x3 Resp Effort & Inspection: normal respiratory effort Auscultation: clear to auscultation bilaterally Cardio Rate: regular rate Rhythm: regular rhythm Heart Sounds: no murmurs GI Inspection: non-distended Palpation: soft, nontender Assessment & Plan Problems 1. Gastroesophageal reflux disease, esophagitis presence not specified K21.9 Plan Patient has long-standing GERD and would like EGD to rule out long-standing esophagitis. I have also ordered him a prescription of Carafate. I have also advised him to decrease his ibuprofen usage. I explained endoscopy in detail to the patient. I explained the risks including but not limited to stroke or heart attack with anesthesia, perforation of the GI tract, bleeding, infection. I explained that any of these could necessitate further emergency surgery. The patient understands and all questions were answered sufficiently. The patient wishes to proceed with procedure. Uriel Hooker MD Pager: [facility] [address] [place] [address] [address] [place] [address] Office:
--- NOTE | 2019-02-02 08:30 | EGD_PTH ---
PATIENT: GUILLERMINA KRAFT LOC: [facility] U#:[id number] AGE/SX: 54/M ROOM: RE02/02/[address]: Dr. Uriel Hooker MD : [id number] BED: DIS: 02/02/2019 SPEC #: [id number] RECD: 02/02/19 09:22 STATUS: ROSARIO SHAHRZAD #: [id number] MICHELLE: 02/02/19 08:[address]: Uriel Hooker DEPT: SURGICAL PATHOLOGY RECD BY: Massimo Villagran ENTERED: 02/02/19 10:56 SP TYPE: EGD BIOPSY OTHR DR: Dr. Mat Kitchen, Tissues: A - Gastric mucous membrane B - Gastric mucous membrane Procedures: Surgery Specimen Level IV HEADER [place] [place] DIAGNOSIS: GERD TISSUE SUBMITTED: A - Antral biopsy for H. pylori and histo, B - GE junction MICROSCOPIC DIAGNOSIS A. Gastric antrum, biopsy: Chronic gastritis. See comment. B. Gastroesophageal junction, biopsy: Chronic inflammation. No evidence of intestinal metaplasia. See comment. AM:ira 02/05/19 COMMENT A. The results of immunohistochemistry for Helicobacter pylori will be reported separately ([id number]). B. Alcian blue/PAS stain with matched control supports the above diagnosis. MICROSCOPIC DESCRIPTION Slides are reviewed. GROSS DESCRIPTION A - Received in fixative is one container labeled with the patient's name and designated antral biopsy. The specimen consists of two irregular fragments of light patricio soft tissue that in aggregate measure 0.8 x 0.2 x 0.1 cm. The specimen is totally submitted in one cassette. B - Received in fixative is one container labeled with the patient's name and designated GE junction biopsy. The specimen consists of multiple irregular fragments of light patricio soft tissue that in aggregate measure 1 x 0.5 x 0.1 cm. The specimen is totally submitted in one cassette. / SJ:ira 02/02/19 TC:3 CPT: 14569 x2, 70058
--- NOTE | 2019-02-02 08:30 | IMM_PTH ---
PATIENT: GUILLERMINA KRAFT LOC: [facility] U#:[id number] AGE/SX: 54/M ROOM: RE02/02/[address]: Dr. Uriel Hooker MD : [id number] BED: DIS: 02/02/2019 SPEC #: [id number] RECD: 02/02/19 12:03 STATUS: ROSARIO REAshley #: [id number] MICHELLE: 02/02/19 08:[address]: Uriel Hooker DEPT: IMMUNOHISTOCHEMISTRY RECD BY: Anabela Mi ENTERED: 02/02/19 12:04 SP TYPE: IMMUNO OTHR DR: Dr. Mat Kitchen DO Tissues: A - Stomach, NOS Procedures: H Pylori (initial) PHYSICIAN & INSTITUTION [place] [address] SPECIMEN INFORMATION: Tissue Source: A - Antral biopsy Clinical Info: GERD Specimen Number: [id number] CPT code: 87338 METHODOLOGY: Deparaffinized sections of prefer/formalin-fixed tissue or PAP/DQ stained slides are incubated with monoclonal/polyclonal antibodies/oligonucleotide probes. Localization is made via biotin free immunoperoxidase method. Appropriate controls are performed and reacted as expected. Results on target cell population are indicated in the following table: RESULTS: ANTIBODY / CLONE RESULT Block A H Pylori (polyclonal) negative These tests were developed and their performance characteristics determined by [facility]. They may not have been cleared or approved by the U.S. Food and Drug Administration. The FDA has determined that such clearance or approval is not necessary. INTERPRETATION: A. Antral biopsy: Negative for Helicobacter pylori organisms. AM:ira 02/05/19
--- NOTE | 2019-02-02 09:09 | OP.ENDO_ITS ---
02/02/2019 Mat Kitchen [address] [place] [address] Re : Upper GI endoscopy procedure for Roldan Patton Dear Dr. Kitchen This procedure was performed on Saturday, February 02, 2019. My impressions and recommendations are as follows: Impressions : - Erythematous mucosa in the prepyloric region of the stomach. Biopsied. - Non-severe reflux esophagitis. Rule out Reynolds's esophagus. Biopsied. Recommendations : - Await pathology results. - Discharge patient to home (ambulatory). - Resume previous diet. - Continue present medications. My findings are described in the full procedure note, which is enclosed. If I can be of further assistance, please feel free to contact me at Doctor phone number(s): , Work: . Sincerely, Uriel Hooker MD 02/02/2019 9:09:04 AM This report has been signed electronically.
[2019-02-02 09:10] VITALS: BP 131/90; BP 98/57; PULSE 76; PULSE 81; RESP 16; TEMP 36.5; O2SAT 96; O2SAT 97
[2019-02-02 09:15] VITALS: BP 100/49; BP 131/90; PULSE 72; RESP 16; O2SAT 95
[2019-02-02 09:20] VITALS: BP 131/90; BP 97/66; PULSE 86; RESP 16; O2SAT 97
[2019-02-02 09:25] VITALS: BP 131/90; BP 98/60; PULSE 70; RESP 16; TEMP 36.5; O2SAT 96
[2019-02-02 09:34] VITALS: BP 131/90
== END 2019-02-02 09:52 | disposition home or self-care (01) ==
LOC: EN 07:15 → AC 07:17
PROVIDERS: Family Provider Family Medicine; PCP Family Medicine; Referring Provider Family Medicine; Visit Provider Surgery
PROC: 0DJ08ZZ Inspection of Upper Intestinal Tract, Via Natural or Artificial Opening Endoscopic (ICD-10-PCS; CPT 43235; principal; 2019-02-02 08:25)
DX: K21.0 Gastro-esophageal reflux disease with esophagitis (principal); K29.50 Unspecified chronic gastritis without bleeding; I10 Essential (primary) hypertension; F41.9 Anxiety disorder, unspecified; Z79.899 Other long term (current) drug therapy
CPT/HCPCS: 43239; 88305; 88342; J7120

== ENCOUNTER → 2019-11-28 10:46 | Outpatient (CLI) | payer OTHER, SELFPAY ==
[2019-05-04 16:57] VITALS: BMI 29.0
[2019-11-28 12:35] LABS: Erythrocyte Sedimentation Rate 10 mm/hr (0-20)
[2019-11-28 12:38] LABS: Absolute Lymphocyte Count 1.72 X10^3/uL (0.83-4.51); Absolute Neutrophil Count 3.4 X10^3/uL (2.0-7.7); Basophil# 0.04 X10^3/uL; Basophil% 0.7 % (0-1); Eosinophil# 0.07 X10^3/uL; Eosinophils% 1.2 % (0-5); Hematocrit 45.5 % (40-54); Hemoglobin 15.1 g/dL (13.0-16.5); Lymphocyte # 1.72 X10^3/ul (4.0); Lymphocyte % 30.5 % (19-41); Mean Corp Hgb Conc 33.2 g/dL (32-36); Mean Corpuscular Hgb 31.1 pg (27.0-32.0); Mean Corpuscular Volume 93.6 fL (80-94); Mean Platelet Vol. 11.5 fl (6.2-12.0); Monocyte# 0.41 X10^3/uL; Monocyte% 7.3 % (0-10); NRBC Flagged by Analyzer 0 % (0-5); Neutrophil # 3.38 X10^3/uL (2.7-7.7); Neutrophil % 59.9 % (47-70); Platelet Count 251 K/mm3 (150-450); RBC Distribution Width CV 12.8 % (11.6-14.6); RBC Distribution Width SD 43.6 fl (35.1-43.9); Red Blood Count 4.86 M/mm3 (4.6-6.2); White Blood Count 5.6 K/mm3 (4.4-11.0)
[2019-11-28 13:29] LABS: Vitamin B12 439 pg/mL (211-911); Vitamin D,25 Hydroxy 33.5 ng/mL
[2019-11-28 13:40] LABS: ALB/GLOB Ratio 1.1 RATIO (0.9-2.4); AST(SGOT) 24 U/L (15-37); Alanine Aminotransfer ALT/SGPT 54 U/L (16-61); Albumin, Serum 3.7 g/dL (3.2-5.0); Alkaline Phosphatase 51 U/L (45-117); Anion Gap 3 (5-15); BUN 21 mg/dL (7-18); BUN/Creat Ratio 25.3 RATIO (10-20); CRP < 2.90 mg/L (0.0-3.0); Chloride 105 mmol/L (98-107); Cholesterol 255 mg/dL (200); Creatinine, Serum 0.83 mg/dL (0.70-1.30); EST Glomerular Filtration Rate 102 mL/min (>60); Est Glom Filt Rate - Afr Amer 123 mL/min (>60); Globulin 3.3 g/dL (2.2-4.2); Glucose 93 mg/dL (74-106); High Density Lipoprotein 40 mg/dL; Iron 118 ug/dL (65-175); Potassium 4.3 mmol/L (3.5-5.1); Rheumatoid Factor < 10.0 IU/mL (<15); Sodium Level 139 mmol/L (136-145); T4 Free Direct 0.83 ng/dL (0.76-1.46); Thyroid Stim Hormone (TSH) 0.88 uIU/mL (0.358-3.74); Triglycerides 224 mg/dL; Uric Acid 4.9 mg/dL (3.5-7.2); Very Low Density Lipoprotein 45 mg/dL (5-40)
[2019-11-29 15:23] LABS: ANTINUCLEAR ANTIBODIES DIRECT Negative (Negative)
[2019-12-01 14:08] LABS: Testosterone, % Free 3.09 % (1.50-4.20); Testosterone, Free 3.89 ng/dL (5.00-21.00)
[2019-12-01 14:39] LABS: CCP IgG Antibodies 5 units (0-19); Testosterone, Total 126 ng/dL (264-916)
== END ==
PROVIDERS: PCP Family Medicine; Visit Provider Family Medicine
DX: I10 Essential (primary) hypertension (principal); E55.9 Vitamin D deficiency, unspecified; E53.8 Deficiency of other specified B group vitamins; M06.9 Rheumatoid arthritis, unspecified; E29.1 Testicular hypofunction; D64.9 Anemia, unspecified; G25.81 Restless legs syndrome; R53.83 Other fatigue
CPT/HCPCS: 36415; 80053; 80061; 82306; 82607; 83540; 84402; 84403; 84439; 84443; 84481; 84550; 85025; 85652; 86038; 86140; 86200; 86225; 86235; 86431

== ENCOUNTER → 2019-12-03 16:30 | Outpatient (CLI) | payer OTHER, SELFPAY ==
[2019-05-04 16:57] VITALS: BMI 29.0
== END ==
LOC: LAB.FUTURE 16:30 → BFHLAB 12-05 05:58
PROVIDERS: PCP Family Medicine; Visit Provider Family Medicine
DX: R30.0 Dysuria (principal)
CPT/HCPCS: 87086

== ENCOUNTER → 2019-12-10 10:15 | Outpatient (CLI) | payer OTHER, SELFPAY ==
[2019-05-04 16:57] VITALS: BMI 29.0
--- NOTE | 2019-12-10 10:18 | NM_ITS ---
CLINICAL: 54-year-old male with reported history of right upper quadrant abdominal pain. RADIONUCLIDE HEPATOBILIARY SCINTIGRAPHY COMPARISON: None available FINDINGS: Following the intravenous administration of 5.7 mCi of 99m Tc Mebrofenin, hepatobiliary images reveal: 1. Relatively prompt and homogeneous radiopharmaceutical concentration is noted by a normal sized liver. No parenchymal defects are identified. 2. Gallbladder activity is identified at 15 minutes post radiopharmaceutical administration. 3. Small intestinal tract is observed at 45 minutes following tracer injection. 4. Washout of the radiopharmaceutical by the hepatic parenchyma appears qualitatively normal. Cholecystokinin (0.02 ug/kg) was administered intravenously over a 30-minute period. The post CCK gallbladder ejection fraction calculated at 19 minutes following Cholecystokinin administration was noted to be 61.0 % (normal greater than 35%). During 30 minutes of post CCK imaging, there is no scintigraphic evidence of reflux of the radiotracer into the common hepatic duct or refilling of the gallbladder. There is scintigraphic evidence of post cholecystokinin duodenal gastric reflux. NM/Hepatobilliary Img w/Pharm Int IMPRESSION: 1. A gallbladder ejection fraction calculated to be greater than 35% following the administration of Cholecystokinin makes the probability of functional hepatobiliary disease (gallbladder and/or sphincter of Oddi dyskinesia) and/or organic hepatobiliary disease (chronic acalculous cholecystitis and/or cystic duct syndrome) to be low. (Romina Jaimes et al, Journal of Nuclear Medicine 32:1695, 1990). 2. There is scintigraphic evidence of post CCK duodenal-gastric reflux as described above. (Demond et al, Nucl Med [place] [employer] Press pg. 35, 1980). Electronically Signed: Fran Caro DO at 23:20 EDT Tel , Service support ,
== END ==
PROVIDERS: PCP Family Medicine; Referring Provider Family Medicine; Visit Provider Family Medicine
DX: R10.11 Right upper quadrant pain (principal); K82.9 Disease of gallbladder, unspecified
CPT/HCPCS: 78227; A9537; J2805

== ENCOUNTER 2020-02-13 11:10 | Inpatient (IN) | payer OTHER, SELFPAY ==
[2019-05-04 16:57] VITALS: BMI 29.0
[2020-02-13] VITALS (22 sets, daily range): BP systolic 93–152; BP diastolic 56–87; PULSE 83–166; RESP 16–24; TEMP 36.4–37; O2SAT 96–98; BMI 29.6; BMI 28.7
--- NOTE | 2020-02-13 11:25 | EKG12_ITS ---
Test Reason : TACHY Blood Pressure : / mmHG Vent. Rate : 175 BPM Atrial Rate : 468 BPM P-R Int : 000 ms QRS Dur : 068 ms QT Int : 268 ms P-R-T Axes : 000 083 049 degrees QTc Int : 457 ms Atrial fibrillation with rapid ventricular response Abnormal ECG Confirmed by MILLER WYATT, CANDELARIO ([id number]), manager editorial MARTHA COPPOLA ([id number]) on 02/18/2020 8:22:15 A M Referred By: SAMANTA Confirmed By:KAMINI BHATT MD
--- NOTE | 2020-02-13 11:25 | RAD_ITS ---
STUDY: X-RAY CHEST REASON FOR EXAM: Male, 55 years old. A-FIB, ACUTE ON-SET TECHNIQUE: Single frontal view of the chest. COMPARISON: 08/07/2018 FINDINGS: Cardiac silhouette unremarkable. Pulmonary vascularity unremarkable. Aorta unremarkable. No focal airspace opacities. No pleural effusions. Upper abdomen unremarkable. Osseous structures intact. No pneumothorax. RAD/Chest 1 View (Portable) IMPRESSION: No acute cardiopulmonary process identified. Electronically Signed: Roldan Broussard, at 12:18 EDT Tel , Service support ,
--- NOTE | 2020-02-13 11:27 | ED.VIS.CHEST ---
History of Present Illness Chief Complaint: Palpitations Informant: Patient Onset: Days - 4 Timing: Intermittent, Lasts - minutes usually Quality: Aching Location: Substernal - diffuse, not well localized; also in upper back and both shoulders when occurs Current Severity: Gone Maximum Severity: Mild Worsened By: Nothing Relieved By: Nothing Associated Symptoms: Lightheadedness - yesterday, Palpitations - at times. Negative for: Nausea, Vomiting, Diaphoresis, Dyspnea, Cough, Fever Narrative: For several weeks or months patient has been having intermittent aching discomfort in his chest and upper back, oftentimes the shoulders, usually is not severe and he chalked it up to being associated with his reflux. In the last 4 days it has been worse when it occurs, and associated with fluttering palpitations at times. He had an appointment with his PCP this morning, they did an EKG in the office since he was tachycardic and he was noted to be in rapid A. fib, so he was referred here to the emergency department. Currently he is not feeling a fluttering although he is tachycardic in the 170-180 range, and does not currently have chest discomfort. No known history of this or any other heart disease, no family history of ischemic heart disease that he knows of, denies any history of DVT or PE, none of his discomfort is pleuritic when it occurs, and he has noted no calf pain or leg swelling, no recent long travel, immobilization, hospitalization, or surgery. Patient presents during the national coronavirus emergency declaration/pandemic. He denies any known contact with anyone infected with COVID-19. He denies traveling out of the immediate area recently. Aspirin 325 was given prior to arrival here in ER. Prior Similar Symptoms: No Recent Illness/Hospitalization: No - Past Medical History (1) HTN (hypertension) Status: Chronic (2) GERD (gastroesophageal reflux disease) Status: Chronic Past Medical History - Allergies and Home Meds Allergies/Adverse Reactions: Allergies erythromycin base Allergy (Verified 02/13/20 11:14) Hives Penicillins [PCN] Allergy (Verified 02/13/20 11:14) Hives Primary Care Physician: Yola Hardin DO [Primary Care Provider] - Lives: Spouse/ Significant Other Smoking Status: Never smoker - Family History Maternal Family History: Family History (Last Reviewed 05/04/19 @ 16:57 by Alexandra Lujan) Mother Hypertension Family History: Denies: Heart Disease Review of Systems General: Denies: Chills, Fever, Sweats Eyes: Denies: Visual changes - bilaterally, Diplopia ENT: Denies: Bilateral ear pain, Rhinorrhea, Sore throat Cardiovascular: Reports: Chest pain, Palpitations Respiratory: Denies: Dyspnea, Cough, Dyspnea on exertion Gastrointestinal: Denies: Abdominal pain, Nausea, Vomiting, Diarrhea, Melena, Hematochezia Genitourinary: Denies: Dysuria, Hematuria, Frequency Musculoskeletal: Reports: Back pain - upper, Extremity Pain - shoulders. Denies: Myalgias, Neck pain, Swelling Skin: Denies: Rash, Wounds Neurological: Denies: Headache, Weakness, Numbness Physical Exam Vital Signs/Narrative: Vital Signs Temp Pulse Resp BP Pulse Ox 02/13/20 11:11 97.6 F L 125 H 16 127/87 H 98 Inital Vital Signs reviewed: Yes General: Well nourished, Well developed, No Acute Distress - well-appearing Head: Normocephalic, Atraumatic Eyes: Perrl, EOMI ENT: Moist mucous membranes, No rhinorrhea Neck: Supple, Nontender, No JVD Cardiovascular: No murmurs, Irregular, Tachycardia Respiratory: No distress, CTA bilaterally, Chest nontender Abdomen: Soft, Nontender, Nondistended, Normal bowel sounds Back: Nontender, Normal Inspection Extremities: Nontender, No edema. Negative for: Calf Tenderness Skin: Normal color, No rash, No Trauma Neurological: Alert, Oriented x3, Cranial nerves II-XII grossly intact, Normal Strength, Normal Sensation, Normal Gait Psychological: Normal affect, Normal Mood Diagnostic/Tx/Re-eval Laboratory Results 02/13/20 02/13/20 11:20 11:20 WBC 8.6 RBC 5.64 Hgb 17.6 H Hct 53.3 MCV 94.5 H MCH 31.2 MCHC 33.0 RDW Std Deviation 43.8 RDW Coeff of Ignacio 12.8 Plt Count 286 MPV 11.3 Immature Gran % (Auto) 0.200 Neut % (Auto) 65.9 Lymph % (Auto) 25.1 [place] % (Auto) 7.5 Eos % (Auto) 0.5 Baso % (Auto) 0.8 Absolute Neuts (auto) 5.7 Absolute Lymphs (auto) 2.16 Nucleated RBC % 0 Sodium 141 Potassium 4.0 Chloride 105 Carbon Dioxide 32.0 Anion Gap 4 L BUN 18 Creatinine 0.99 Estim Creat Clear Calc 85.00 Est GFR (MDRD) Af Amer 100 Est GFR (MDRD) Non-Af 83 BUN/Creatinine Ratio 18.2 Glucose 115 H Calcium 8.7 Troponin I < 0.015 - Rhythm Strip Rhythm Strip: A-fib Rate: 175 Ectopy: None Treatment: - - Cardizem IV bolus followed by drip Repeat Eval: Pain Free DARRON Risk: No Positive DARRON Elements Score: 0 - Medical Decision Making Work-up as above, fairly unremarkable. After Cardizem 20 mg, he came down to the lower 100s, but was still up to 130 at times. Therefore he was going to be started on a Cardizem drip but after discussion w/ hospitalist, we will instead do repeat Cardizem bolusing for now since he is clinically and hemodynamically doing well. The plan is admission to PCU for further Cardiologic evaluation and treatment. Do not suspect pulmonary embolus here, do not suspect COVID-19. At this time no evidence of acute cardiac ischemia. ED Disposition - Plan for ED Patient: Disposition: Acute Care Hospital [facility] Diagnosis: Chest pain, Atrial fibrillation with RVR Referrals: Yola Hardin DO [Primary Care Provider] -
[2020-02-13] MEDS: 0.9% Normal Saline 1,000 ML 1000 ML IV (11:31)
[2020-02-13] MEDS: dilTIAZem 25 MG/5 ML Vial 20 MG IV BOLUS (11:31)
[2020-02-13 11:32] LABS: Absolute Lymphocyte Count 2.16 X10^3/uL (0.83-4.51); Absolute Neutrophil Count 5.7 X10^3/uL (2.0-7.7); Basophil# 0.07 X10^3/uL; Basophil% 0.8 % (0-1); Eosinophil# 0.04 X10^3/uL; Eosinophils% 0.5 % (0-5); Hematocrit 53.3 % (40-54); Hemoglobin 17.6 g/dL (13.0-16.5); Lymphocyte # 2.16 X10^3/ul (4.0); Lymphocyte % 25.1 % (19-41); Mean Corpuscular Hgb 31.2 pg (27.0-32.0); Mean Corpuscular Volume 94.5 fL (80-94); Mean Platelet Vol. 11.3 fl (6.2-12.0); Monocyte# 0.65 X10^3/uL; Monocyte% 7.5 % (0-10); NRBC Flagged by Analyzer 0 % (0-5); Neutrophil # 5.68 X10^3/uL (2.7-7.7); Neutrophil % 65.9 % (47-70); Platelet Count 286 K/mm3 (150-450); RBC Distribution Width CV 12.8 % (11.6-14.6); RBC Distribution Width SD 43.8 fl (35.1-43.9); Red Blood Count 5.64 M/mm3 (4.6-6.2); White Blood Count 8.6 K/mm3 (4.4-11.0)
[2020-02-13 11:49] LABS: Anion Gap 4 (5-15); BUN 18 mg/dL (7-18); BUN/Creat Ratio 18.2 RATIO (10-20); Calcium,Total 8.7 mg/dL (8.5-10.1); Chloride 105 mmol/L (98-107); Creatinine, Serum 0.99 mg/dL (0.70-1.30); EST Glomerular Filtration Rate 83 mL/min (>60); Est Glom Filt Rate - Afr Amer 100 mL/min (>60); Glucose 115 mg/dL (74-106); Sodium Level 141 mmol/L (136-145)
[2020-02-13] MEDS: dilTIAZem 25 MG/5 ML Vial 15 MG IV BOLUS (12:19)
--- NOTE | 2020-02-13 12:28 | NURSING ---
FAISAL BETANCOURT AFIB WITH RVR, CP
--- NOTE | 2020-02-13 13:05 | ECHOD_ITS ---
Reason For Study: AFIB/FLUTTER Procedure This was a 2D Doppler, Color Flow transthoracic echocardiogram. Technically difficult due to AFib/ heart rate . Exam performed portable in patient room. Left Ventricle Normal LV size. The estimated ejection fraction is 65 %. No evidence for diastolic dysfunction. No regional wall motion abnormalities noted. Right Ventricle Normal RV size. Normal systolic function. Atria Normal left atrium. Normal right atrium. Normal atrial septum. Mitral Valve There is no mitral valve stenosis. Trivial mitral valve insufficiency. Tricuspid Valve There is no tricuspid stenosis. Unable to estimate RV systolic pressure due to inadequate jet, pulmonary artery pressure probably normal. Aortic Valve Aortic sclerosis, no stenosis. There is no aortic stenosis. No aortic valve insufficiency. Pulmonic Valve There is no pulmonic valvular stenosis. No pulmonic valve insufficiency. Great Vessels Normal aortic root. Pericardium/Pleural No pericardial effusion. MMode/2D Measurements & Calculations LVIDd: 4.1 cm IVSd: 1.1 cm Ao root diam: 3.3 cm LVIDs: 2.9 cm LVPWd: 1.2 cm RVDd: 3.3 cm FS: 29.1 % LAV(MOD-bp): 44.3 ml LA A4 area: 14.9 cm2 LA dimension(2D): 4.0 cm LAV(MOD-bp) Indexed: 21.0 ml/m2 LAV(MOD-sp2): 50.6 ml LAV(MOD-sp4): 37.6 ml RA A4 area: 12.9 cm2 Doppler Measurements & Calculations Ao V2 max: 172.0 cm/sec LV V1 max: 137.4 cm/sec PA V2 max: 118.3 cm/sec Ao max P.1 mmHg LV V1 max P.6 mmHg TR max shahla: 226.1 cm/sec TR max P.2 mmHg Interpretation Summary The estimated ejection fraction is 65 %. No evidence for diastolic dysfunction. Trivial mitral valve insufficiency. Aortic sclerosis, no stenosis. Ordering Physician: Mat English Referring Physician: PADDY VEGA Performed By: Yolanda Campos, CAITLINCS, RVT
[2020-02-13] MEDS: busPIRone 5 MG Tablet 10 MG PO ×2 (13:51→21:33)
[2020-02-13] MEDS: dilTIAZem 30 MG Tablet PO ×2 (13:51→14:42)
--- NOTE | 2020-02-13 14:18 | HP.PCM_ITS ---
Problem List (1) HTN (hypertension) Status: Chronic (2) Atrial fibrillation with RVR Status: Acute (3) Sinusitis, acute Status: Resolved Qualifiers: Sinusitis location: pansinusitis Recurrence: non-recurrent Qualified Code(s): J01.40 - Acute pansinusitis, unspecified (4) GERD (gastroesophageal reflux disease) Status: Chronic Qualifiers: Esophagitis presence: esophagitis presence not specified Qualified Code(s): K21.9 - Gastro-esophageal reflux disease without esophagitis History of Present Illness Date of Admission: 02/13/20 Chief Complaint: Palpitations. The patient is a 55 year old M who presents to the Emergency Room due to palpitations. Patient states Tuesday night he had palpitations through the night. It has continued intermittently since that time. He went to a primary care physician office this morning and was noted to be in atrial fibrillation with RVR. He describes mild discomfort in his upper abdomen which he relates to acid reflux. He denies chest pressure or chest pain. Denies shortness of breath. Denies dizziness/lightheadedness. Patient states now that he is more aware of his symptoms, he feels that he has had these kind of palpitations intermittently for a long period of time. He previously attributed his symptoms to his chronic anxiety. He denies any cardiac history. States he had a stress test in his 30s which was normal. No smoking history. He has a past medical history of hypertension, anxiety, BPH, GERD. Past Medical History Past Medical History (Chronic Problems): Chronic Problems (Last Updated 05/04/19 @ 16:56 by Alexandra Lujan) HTN (hypertension) (Chronic) GERD (gastroesophageal reflux disease) (Chronic) Medical History: Medical History (Last Updated 05/04/19 @ 16:56 by Alexandra Lujan) Anxiety F41.9 Arthritis M19.90 GERD (gastroesophageal reflux disease) K21.9 Neck pain M54.2 Shoulder pain M25.519 HTN (hypertension) I10 Allergies erythromycin base Allergy (Verified 02/13/20 11:14) Hives Penicillins [PCN] Allergy (Verified 02/13/20 11:14) Hives Home Medications: Ambulatory Orders Medication Instructions Recorded Allopurinol 1 tab PO DAILY 11/23/17 Lisinopril 20 mg PO DAILY 11/23/17 esomeprazole magnesium 20 mg 40 mg PO DAILY cap 01/30/19 capsule,delayed release Duloxetine Hcl [Cymbalta] 30 mg PO DAILY 02/13/20 Ergocalciferol [Vitamin D] 50,000 unit PO QWEEK 02/13/20 Tamsulosin HCl [Flomax] 1 tab PO QHS 02/13/20 Testosterone Cypionate 200 mg IM Q14D 02/13/20 [Depo-Testosterone] Surgical History: Surgical History (Last Reviewed 02/13/20 @ 14:18 by Jen Louis NP, PROTOTYPE FABRICATOR-C) History of colonoscopy Onset Date: ~2012 Z98.890 History of esophagogastroduodenoscopy (EGD) Z98.890 History of kidney surgery Z98.890 History of repair of right rotator cuff Z98.890 Psychiatric History: Anxiety Lives: Spouse/ Significant Other Smoking Status: Never smoker Alcohol: Occasional Drugs: None - *Family History Maternal Family History: Family History (Last Reviewed 02/13/20 @ 14:19 by Jen Louis NP, PROTOTYPE FABRICATOR-C) Mother Hypertension History Items: Hypertension Paternal Family History: Family History (Last Reviewed 02/13/20 @ 14:19 by Jen Louis NP, PROTOTYPE FABRICATOR-C) Mother Hypertension History Items: - - Emphysema Review of Systems Constitutional: Denies: Chills, Fever, Weight Change HEENT: Denies: Head Aches, Sinus Congestion, Sinus Drainage Cardiovascular: Reports: Palpitations. Denies: Chest Pain, Edema, Light Headedness, Syncope Respiratory: Denies: Cough, Shortness of breath at rest, Sputum production Gastrointestinal: Denies: Abdominal Pain, Nausea, Vomiting Genitourinary: Denies: Dysuria Musculoskeletal: Denies: Joint Pain, Joint Tenderness Skin: Denies: Rash, Wounds Neurological: Denies: Numbness, Tingling, Focal weakness Psychiatric: Reports: Anxiety. Denies: Depression, Homicidal Ideations, Suicidal Ideations Hematologic/ Lymphatic: Denies: Easy Bruising, Easy Bleeding VTE Information - Inpt Only VTE Present on Admission: No VTE Mechan Device Prophylaxis: None VTE Pharm Prophylaxis ordered?: Yes Patient Problems: Active and Suspected Problems (Last Updated 05/04/19 @ 16:56 by Alexandra Lujan) Atrial fibrillation with RVR (Acute) - Physical Exam Vitals/I&O's: Vital Signs Temp Pulse Resp BP Pulse Ox 98.6 F 108 H 16 152/73 H 98 02/13/20 13:15 02/13/20 13:15 02/13/20 13:15 02/13/20 13:15 02/13/20 13:15 Oxygen Flow Rate (L/min) 2 Oxygen Delivery Method Room Air Weight: 199 lb 15.348 oz Body Mass Index (BMI) 28.7 Intake and Output for Last 24 Hours 02/11/20 02/12/20 02/13/20 23:59 23:59 23:59 Intake Total 1000 / 1000 Balance 1000 / 1000 General: Alert, Oriented x3, Cooperative HEENT: Atraumatic, PERRLA, EOMI, Normocephalic Neck: Supple, No JVD, Negative Carotid Bruits Lungs: Clear to auscultation, Normal air movement Cardiovascular: - - Atrial fibrillation Abdomen: Bowel Sounds Present, Soft, Non Tender, Non-Distended Extremities: No clubbing, No cyanosis, No edema, Capillary Refill Less than 3 Seconds Skin: No rashes, No breakdown Musculoskeletal: No Tenderness to Palpation of Joints or Extremities Neurological: Cranial nerves II-XII grossly intact, Neuro grossly intact Psych/Mental Status: Normal Affect, Appropriate Laboratory Results 02/13/20 11:20: WBC 8.6, RBC 5.64, Hgb 17.6 H, Hct 53.3, MCV 94.5 H, MCH 31.2, MCHC 33.0, RDW Std Deviation 43.8, RDW Coeff of Ignacio 12.8, Plt Count 286, MPV 11.3, Immature Gran % (Auto) 0.200, Neut % (Auto) 65.9, Lymph % (Auto) 25.1, [place] % (Auto) 7.5, Eos % (Auto) 0.5, Baso % (Auto) 0.8, Absolute Neuts (auto) 5.7, Absolute Lymphs (auto) 2.16, Nucleated RBC % 0 02/13/20 11:20: Sodium 141, Potassium 4.0, Chloride 105, Carbon Dioxide 32.0, Anion Gap 4 L, BUN 18, Creatinine 0.99, Estim Creat Clear Calc 85.00, Est GFR (MDRD) Af Amer 100, Est GFR (MDRD) Non-Af 83, BUN/Creatinine Ratio 18.2, Glucose 115 H, Calcium 8.7, Troponin I < 0.015 Current Medications Acetaminophen (Acetaminophen 325 Mg Tablet) 650 mg PO Q6H PRN PRN PRN Reason: Pain Score 1-10/Temp > 100.7 F Apixaban (Apixaban 5 Mg Tablet) 5 mg PO Q12H KIT Buspirone HCl (Buspirone 5 Mg Tablet) 10 mg PO TID KIT Last Admin: 02/13/20 13:51 Dose: 10 mg Documented by: Diltiazem HCl (Diltiazem 30 Mg Tablet) 60 mg PO Q6 KIT Lisinopril (Lisinopril 20 Mg Tablet) 20 mg PO DAILY KIT Pantoprazole Sodium (Pantoprazole Sodium 40 Mg Tablet) 40 mg PO DAILY KIT Sodium Chloride (0.9% Saline Lock 10 Ml Syringe) 10 - 40 ml IV UD PRN PRN Reason: SALINE FLUSH Temazepam (Temazepam 15 Mg Capsule) 15 mg PO QHS PRN PRN PRN Reason: INSOMNIA Assessment/Plan All Active Problems (Last Updated 05/04/19 @ 16:56 by Alexandra Lujan) Atrial fibrillation with RVR (Acute) Sinusitis, acute (Resolved) 1. New onset atrial fibrillation with RVR-initially placed on cardizem drip. Transition to oral Cardizem 60 mg p.o. every 6 hours. Trend enzymes. Check TSH. Obtain echocardiogram. Cardiology consult. Initiated on Eliquis. 2. Hypertension-stable, continue lisinopril. 3. Anxiety-reports adverse symptoms with Cymbalta. Transition to BuSpar. 4. BPH- continue flomax. 5. GERD- continue PPI. DVT prophylaxis-Eliquis This patient was seen by SKYLAR Hopper under the supervision of Dr. English.
[2020-02-13 16:04] LABS: Thyroid Stim Hormone (TSH) 1.35 uIU/mL (0.358-3.74)
--- NOTE | 2020-02-13 17:08 | CON.PCM_ITS ---
Reason for Consult Date of Consultation: 02/13/20 Reason for Consultation: a fib History of Present Illness: The patient is a 55 year old M who presents to the Emergency Room due to palpitations. Patient states Tuesday night he had palpitations through the night. It has continued intermittently since that time. He went to a primary care physician office this morning and was noted to be in atrial fibrillation with RVR. He describes mild discomfort in his upper abdomen which he relates to acid reflux. He denies chest pressure or chest pain. Denies shortness of breath. Denies dizziness/lightheadedness. Patient states now that he is more aware of his symptoms, he feels that he has had these kind of palpitations intermittently for a long period of time. He previously attributed his symptoms to his chronic anxiety. He denies any cardiac history. States he had a stress test in his 30s which was normal. No smoking history. He has a past medical history of hypertension, anxiety, BPH, GERD. Review of systems: All systems reviewed. All else is negative except that in HPI Past Medical History Allergies/Adverse Reactions: Allergies erythromycin base Allergy (Verified 02/13/20 11:14) Hives Penicillins [PCN] Allergy (Verified 02/13/20 11:14) Hives Home Medications: Ambulatory Orders Medication Instructions Recorded Allopurinol 1 tab PO DAILY 11/23/17 Lisinopril 20 mg PO DAILY 11/23/17 esomeprazole magnesium 20 mg 40 mg PO DAILY cap 01/30/19 capsule,delayed release Duloxetine Hcl [Cymbalta] 30 mg PO DAILY 02/13/20 Ergocalciferol [Vitamin D] 50,000 unit PO QWEEK 02/13/20 Tamsulosin HCl [Flomax] 1 tab PO QHS 02/13/20 Testosterone Cypionate 200 mg IM Q14D 02/13/20 [Depo-Testosterone] Past Medical History (Chronic Problems): Chronic Problems (Last Updated 05/04/19 @ 16:56 by Alexandra Lujan) HTN (hypertension) (Chronic) GERD (gastroesophageal reflux disease) (Chronic) Psychiatric History: Anxiety - *Family History Maternal Family History: Family History (Last Reviewed 02/13/20 @ 14:19 by Jen Louis RECOVERY ROOM NURSE, RECOVERY ROOM NURSE-C) Mother Hypertension History Items: Hypertension Paternal Family History: Family History (Last Reviewed 02/13/20 @ 14:19 by Jen Louis RECOVERY ROOM NURSE, RECOVERY ROOM NURSE-C) Mother Hypertension History Items: - - Emphysema Lives: Spouse/ Significant Other Smoking Status: Never smoker Alcohol: Occasional Drugs: None Objective: Vital Signs Temp Pulse Resp BP Pulse Ox 98.6 F 108 H 16 152/73 H 98 02/13/20 13:15 02/13/20 13:15 02/13/20 13:15 02/13/20 13:15 02/13/20 13:15 Oxygen Flow Rate (L/min) 2 Oxygen Delivery Method Room Air Weight: 199 lb 15.348 oz Body Mass Index (BMI) 28.7 Intake and Output for Last 24 Hours 02/11/20 02/12/20 02/13/20 23:59 23:59 23:59 Intake Total 1000 / 1000 Balance 1000 / 1000 General: Awake, Alert, Oriented x 3 HEENT: Atraumatic Oral: Moist Mucosa Neck: Supple Psych/Mental Status: Appropriate 02/13/20 11:20: WBC 8.6, RBC 5.64, Hgb 17.6 H, Hct 53.3, MCV 94.5 H, MCH 31.2, MCHC 33.0, Plt Count 286, MPV 11.3, Immature Gran % (Auto) 0.200, Neut % (Auto) 65.9, Lymph % (Auto) 25.1, [place] % (Auto) 7.5, Eos % (Auto) 0.5, Baso % (Auto) 0.8, Absolute Neuts (auto) 5.7, Nucleated RBC % 0 02/13/20 11:20: Sodium 141, Potassium 4.0, Chloride 105, Carbon Dioxide 32.0, Anion Gap 4 L, BUN 18, Creatinine 0.99, Est GFR (MDRD) Af Amer 100, Est GFR (MDRD) Non-Af 83, BUN/Creatinine Ratio 18.2, Glucose 115 H, Calcium 8.7, Troponin I < 0.015 02/13/20 15:00: Troponin I < 0.015 Rhythm: EKG: ECHO: Stress Test: Cardiac Cath: PCI: CT Surgery: Holter monitor: EPS: PPM: CXR: Chest CT Scan: Assessment/Plan 1. Atrial fibrillation: Patient still has rapid ventricular response. I think to be reasonable to start him on a Cardizem drip and continue the p.o. Cardizem for now. I will go ahead and discontinue the lisinopril at this time to allow for titration of his rate control medications. Once his rate is controlled if his blood pressure is still high we can add the lisinopril again. I agree with adding Eliquis.
[2020-02-13] MEDS: 0.9% Saline Lock 10 ML Syringe IV (18:17)
[2020-02-13] MEDS: APIXABAN 5 MG TABLET PO (18:19)
[2020-02-13] MEDS: dilTIAZem 30 MG Tablet 60 MG PO (18:19)
--- NOTE | 2020-02-13 19:56 | NURSING ---
Vital signs did not cycle at 19:30 or 19:45.
[2020-02-13] MEDS: Temazepam 15 MG Capsule PO (21:32)
--- NOTE | 2020-02-13 21:35 | EKG12_ITS ---
Test Reason : CP Blood Pressure : / mmHG Vent. Rate : 097 BPM Atrial Rate : 187 BPM P-R Int : 000 ms QRS Dur : 080 ms QT Int : 338 ms P-R-T Axes : 000 088 075 degrees QTc Int : 429 ms Atrial fibrillation Abnormal ECG When compared with ECG of 13-FEB-2020 11:21, MANUAL COMPARISON REQUIRED, DATA IS UNCONFIRMED Confirmed by MILLER WYATT, CANDELARIO ([id number]), editor index MARTHA COPPOLA ([id number]) on 02/18/2020 9:04:56 A M Referred By: ASIA Confirmed By:KAMINI BHATT MD
[2020-02-13] MEDS: Mag Hydrox/Al Hydrox/Simeth 30 ML UDC 15 ML PO (21:58)
[2020-02-13] MEDS: Acetaminophen 325 MG Tablet 650 MG PO (23:19)
[2020-02-14] VITALS (26 sets, daily range): BP systolic 94–129; BP diastolic 53–88; PULSE 69–99; RESP 15–24; TEMP 36.6; O2SAT 94–100
[2020-02-14] MEDS: dilTIAZem 30 MG Tablet 60 MG PO ×2 (00:20→05:24)
[2020-02-14] MEDS: busPIRone 5 MG Tablet 10 MG PO ×2 (05:24→14:59)
[2020-02-14] MEDS: APIXABAN 5 MG TABLET PO ×2 (05:24→16:44)
[2020-02-14] MEDS: Pantoprazole Sodium 40 MG Tablet PO (09:45)
[2020-02-14] MEDS: 0.9% Saline Lock 10 ML Syringe IV (10:37)
[2020-02-14] MEDS: dilTIAZem CD 240 MG Capsule PO (12:07)
--- NOTE | 2020-02-14 13:12 | CASEMGMT ---
JS QUEEN assessment: Face to Face with patient for initial transition planning/care coordination assessment. RN BERNICE introduced self and role at [facility], pt voices understanding and consents to assessment at this time. Pt is sitting up in bed in no distress at this time. Pt is A/Ox4 at this time and answers all questions appropriately at this time. Care providers, pharmacy, and demographics verified/updated at this time. Presentation: Sent by Dr. Hardin for Afib RVR and chest fluttering for a few days Admitting dx: New onset A-Fib RVR PCP: [facility]fred Specialists: Pt states no current specialists at this time. Pt is aware that he will f/u with cardiology and states he is fine with any of the [place] cardiologists. [facility]-Pt to be sent home on Eliquis at discharge and med e-scribed to [facility]. Call to [facility] and per pharmacist, pt's co-pay is $20 at this time. Pt is updated and provided with EliquPlaceword $10 co-pay card at this time, voices understanding. Insurance: MMO Prescription Benefit: MMO Living Will/HPOA: Pt states has LW/HPOA and is aware that they are not on file at [facility] at this time. Pt states his son, Aleksey Patton, is HPOA. LNOK: Aleksey Patton, son/HPOA; Jyoti Reeder, sig other; Anshul Patton, son Living Arrangements: Pt states lives alone in home and states no concerns at home at this time. Pt states is independent with ADL's. Transportation: Pt states drives self and states no transportation concerns at this time. DME/HHC: Pt states no current DME or need for any at this time. Pt states no hx of HHC or SNF in the past. Pt states no concerns with going home at time of discharge. Pt works director multimedia. Pt states does not smoke cigarettes but does drink ETOH occasionally. Pt states no further concerns/needs at this time. CM to follow for any further discharge planning/needs. Advised pt to ask for CM if any further questions/concerns/needs arise, voices understanding. Pt Goal: Home Plan[place] [facility]
--- NOTE | 2020-02-14 14:31 | DCINST_ITS ---
- Discharge Diagnoses Current Active Problems: Current Active and Chronic Problems (Last Updated 05/04/19 @ 16:56 by Alexandra Lujan) HTN (hypertension) (Chronic) Atrial fibrillation with RVR (Acute) GERD (gastroesophageal reflux disease) (Chronic) You will use the following diet at home:: Cardiac Your food should be the consistency of: Regular Your liquids should be the consistency of: Regular/Thin Discharge Activity: Return to Normal Activity Call your doctor if you observe: Dizziness, Fainting spells, Chest pain, Increased palpitations (irregular heartbeat) Allergies/Adverse Reactions: Allergies erythromycin base Allergy (Verified 02/13/20 11:14) Hives Penicillins [PCN] Allergy (Verified 02/13/20 11:14) Hives Medications to take at Discharge Allopurinol 1 tab PO DAILY 11/23/17 esomeprazole magnesium 20 mg capsule,delayed release 40 mg PO DAILY cap 01/30/19 Ergocalciferol [Vitamin D] 50,000 unit PO QWEEK 02/13/20 Tamsulosin HCl [Flomax] 1 tab PO QHS 02/13/20 Testosterone Cypionate [Depo-Testosterone] 200 mg IM Q14D 02/13/20 Apixaban [Eliquis] 5 mg PO Q12H #60 tab 02/14/20 Diltiazem CD [Cardizem CD] 240 mg PO DAILY #30 cap 02/14/20 busPIRone [Buspar] 10 mg PO TID #90 tab 02/14/20 The following prescriptions were given: busPIRone [Buspar] 10 mg PO TID #90 tab Transmission Status: Received by [facility] [id number] Diltiazem CD [Cardizem CD] 240 mg PO DAILY #30 cap Transmission Status: Received by [facility] [id number] Apixaban [Eliquis] 5 mg PO Q12H #60 tab Transmission Status: Received by [facility] 181 Primary Care Physician: Yola Hardin DO [Primary Care Provider] - Please follow up with your Primary Care Physician in: 1-2 weeks Test Results: Test results from this visit will be discussed in further detail at your follow- up appointment, if applicable. Please Follow Up With: Vania Quinones MD When: as directed Proposed Discharge Date: 02/14/20
--- NOTE | 2020-02-14 14:37 | DS.PCM_ITS ---
Discharge Date and Diagnosis - Problem List Patient Problems: Active and Suspected Problems (Last Updated 05/04/19 @ 16:56 by Alexandra Lujan) Atrial fibrillation with RVR (Acute) Date of Admission: 02/13/20 Date of Discharge: 02/14/20 - Primary Discharge Diagnosis Acute Problems: Active Problems (Last Updated 05/04/19 @ 16:56 by Alexandra Lujan) Atrial fibrillation with RVR (Acute) - Secondary Discharge Diagnosis Chronic Problems: Chronic Problems (Last Updated 05/04/19 @ 16:56 by Alexandra Lujan) HTN (hypertension) (Chronic) GERD (gastroesophageal reflux disease) (Chronic) Hospital Course and Treatment Imaging Results: RAD/Chest 1 View (Portable) IMPRESSION: No acute cardiopulmonary process identified. 2D TTE: Interpretation Summary The estimated ejection fraction is 65 %. No evidence for diastolic dysfunction. Trivial mitral valve insufficiency. Aortic sclerosis, no stenosis. Consults: Cardiology - [facility] Operations: None Procedures: 2-D Echocardiogram Summary of Care Provided: Hospital course: The patient is a 55 year old M with past medical history of hypertension and hyperlipidemia who presented to the emergency room with heart palpitations that began on the Tuesday prior to admission. He was seen by his PCP who noted that he had A. fib RVR sent him to the emergency room. He was found to have a heart rate of greater than 120. He was placed on oral Cardizem initially had improvement however began to be tachycardic again was placed on a Cardizem drip. Cardiology was consulted. He was transitioned from Cardizem drip to oral Cardizem, Cardizem CD 240 daily. Echocardiogram was obtained with results as above, EF of 65%, noted diastolic dysfunction, trivial MVI, aortic sclerosis with no stenosis. Patient continued to have a stable heart rate. He was placed on Eliquis for oral anticoagulation. He was discharged home in stable condition will need to follow-up with cardiology as directed, follow-up with his PCP in 1 to 2 weeks. This patient was seen by Luis Neil PA-C under the supervision of Doctor English. [] Patient Problems: Active and Suspected Problems (Last Updated 05/04/19 @ 16:56 by Alexandra Lujan) Atrial fibrillation with RVR (Acute) - Physical Exam Vitals/I&O's: Vital Signs Temp Pulse Resp BP Pulse Ox 97.8 F 77 16 113/88 H 96 02/14/20 11:00 02/14/20 11:00 02/14/20 11:00 02/14/20 11:00 02/14/20 11:00 Oxygen Flow Rate (L/min) 2 Oxygen Delivery Method Room Air Weight: 199 lb 15.348 oz Body Mass Index (BMI) 28.7 Intake and Output for Last 24 Hours 02/12/20 02/13/20 02/14/20 23:59 23:59 23:59 Intake Total 1343.67 / 1358.67 552.51 / 552.51 Output Total 1075 / 1075 Balance 1343.67 / 1358.67 -522.49 / -522.49 General: Alert, Oriented x3, Cooperative HEENT: Atraumatic, PERRLA, EOMI, Normocephalic Neck: Supple, No JVD, Negative Carotid Bruits Lungs: Clear to auscultation, Normal air movement Cardiovascular: No murmurs, Irregular Rate Abdomen: Bowel Sounds Present, Soft, Non Tender Extremities: No edema, Capillary Refill Less than 3 Seconds Skin: No rashes, No breakdown Musculoskeletal: No Tenderness to Palpation of Joints or Extremities Neurological: Cranial nerves II-XII grossly intact Psych/Mental Status: Normal Affect, Appropriate, Alert and oriented to time, place, person, mood and affect Laboratory Results 02/13/20 11:20: TSH 1.35 02/13/20 15:00: Troponin I < 0.015 02/13/20 17:50: Troponin I < 0.015 Current Medications Acetaminophen (Acetaminophen 325 Mg Tablet) 650 mg PO Q6H PRN PRN PRN Reason: Pain Score 1-10/Temp > 100.7 F Last Admin: 02/13/20 23:19 Dose: 650 mg Documented by: Al Hydroxide/Mg Hydroxide (Mag Hydrox/Al Hydrox/Simeth 30 Ml Udc) 15 ml PO Q4H PRN PRN PRN Reason: INDIGESTION Last Admin: 02/13/20 21:58 Dose: 15 ml Documented by: Apixaban (Apixaban 5 Mg Tablet) 5 mg PO Q12H KIT Last Admin: 02/14/20 05:24 Dose: 5 mg Documented by: Buspirone HCl (Buspirone 5 Mg Tablet) 10 mg PO TID [facility] Last Admin: 02/14/20 05:24 Dose: 10 mg Documented by: Pantoprazole Sodium (Pantoprazole Sodium 40 Mg Tablet) 40 mg PO DAILY [facility] Last Admin: 02/14/20 09:45 Dose: 40 mg Documented by: Sodium Chloride (0.9% Saline Lock 10 Ml Syringe) 10 - 40 ml IV UD PRN PRN Reason: SALINE FLUSH Last Admin: 02/14/20 10:37 Dose: 10 ml Documented by: Temazepam (Temazepam 15 Mg Capsule) 15 mg PO QHS PRN PRN PRN Reason: INSOMNIA Last Admin: 02/13/20 21:32 Dose: 15 mg Documented by: Discharge Diet: Low fat/ Low Cholesterol, 2000 mg Sodium Diet Discharge Activity: Return to Normal Activity Call your doctor if you observe: Dizziness, Fainting spells, Chest pain, Increa sed palpitations (irregular heartbeat) Home Medications: Medications to take at Discharge Allopurinol 1 tab PO DAILY 11/23/17 esomeprazole magnesium 20 mg capsule,delayed release 40 mg PO DAILY cap 01/30/19 Ergocalciferol [Vitamin D] 50,000 unit PO QWEEK 02/13/20 Tamsulosin HCl [Flomax] 1 tab PO QHS 02/13/20 Testosterone Cypionate [Depo-Testosterone] 200 mg IM Q14D 02/13/20 Apixaban [Eliquis] 5 mg PO Q12H #60 tab 02/14/20 Diltiazem CD [Cardizem CD] 240 mg PO DAILY #30 cap 02/14/20 busPIRone [Buspar] 10 mg PO TID #90 tab 02/14/20 Following Prescriptions Were Given to Patient: busPIRone [Buspar] 10 mg PO TID #90 tab Transmission Status: Received by [facility] 181 Diltiazem CD [Cardizem CD] 240 mg PO DAILY #30 cap Transmission Status: Received by [facility] 181 Apixaban [Eliquis] 5 mg PO Q12H #60 tab Transmission Status: Received by [facility] 181 Primary Care Physician: Yola Hardin DO [Primary Care Provider] - Please follow up with your Primary Care Physician in: 1-2 weeks Please Follow Up With: Vania Quinones MD When: as directed Disposition: Home Minutes spent on discharge:: 35 Patient Condition:: Stable Medical Necessity - Tobacco Use Smoking Status: Never smoker Meaningful Use Info Meaningful Use Diagnoses (Choose all that apply): None applicable
== END 2020-02-14 17:15 | disposition home or self-care (01) | DRG 310 ==
LOC: ED 12:19 → PCU 12:49
PROVIDERS: Nurse Practitioner Family; Admitting Provider Internal Medicine; Emergency Provider Emergency Medicine; PCP Family Medicine; Visit Provider Internal Medicine
DX: I48.91 Unspecified atrial fibrillation (principal); I10 Essential (primary) hypertension; K21.9 Gastro-esophageal reflux disease without esophagitis; Z23 Encounter for immunization; M19.90 Unspecified osteoarthritis, unspecified site; N40.0 Benign prostatic hyperplasia without lower urinary tract symptoms; F41.9 Anxiety disorder, unspecified; E78.5 Hyperlipidemia, unspecified
CPT/HCPCS: 36415; 71045; 80048; 84443; 84484; 85025; 93005; 93306; 94760; 99281; 99285; J7030; 90686; A4216

== ENCOUNTER → 2020-03-20 06:51 | Outpatient (CLI) | payer OTHER, SELFPAY ==
[2020-03-04 08:33] VITALS: BMI 29.7
--- NOTE | 2020-03-21 15:24 | STRESSREP_ITS ---
Stress Test Report Date: 03/20/2020 Procedure: Exercise tolerance test/imaging study Indications: Chest pain Consent: Per the patient Procedure: The patient exercised on a Boston protocol for 9 minutes achieving a peak heart rate of 155 bpm (95% predicted maximal heart rate) with a peak blood pressure 182/74 mmHg and a peak MET capacity of 10.4 METs. The baseline ECG demonstrated sinus rhythm. The peak exercise ECG demonstrated sinus tachycardia with no significant ischemic ST-T changes. EKG during recovery revealed no significant ischemic changes [There were no cardiac dysrhythmias pretest, during exercise, or recovery]. The functional capacity was considered normal for age. There was [no complaint of chest discomfort during exercise or recovery]. The examination was discontinued secondary to dyspnea. Impression: 1. Technically adequate (percent predicted maximal heart rate greater than 85%) exercise tolerance test 2. Stress test is negative for exercise-induced EKG changes of ischemia 3. The test test is negative for exercise-induced chest pain 4. Functional capacity is normal for age 5. Nuclear images pending Myocardial perfusion imaging study: Technique: The patient was injected with 12 mCi of technetium 99m Cardiolite and subsequently rest SPECT Cardiolite nuclear imaging was obtained in the hori zontal long, vertical long, and short axis views. The patient exercised on a Boston protocol. Please see above for details. The patient was injected with 34.8 mCi of technetium 99m Cardiolite and subsequently stress SPECT Cardiolite nuclear imaging was obtained in the horizontal long, vertical long, and short axis views. A gated Cardiolite study at peak stress was obtained. Interpretation: Rest and stress SPECT Cardiolite nuclear imaging status post realignment, normalization, and attenuation correction, demonstrates normal myocardial radioisotope uptake after attenuation correction. The gated Cardiolite study demonstrates no significant regional wall motion abnormalities. The reported LVEF is 63%. Impression: 1. There is no evidence of significant ischemia or infarction. 2. The gated Cardiolite study reports an LVEF of 63%. This note was generated with [employer]ation software. It may contain incorrect words, spelling, and punctuation that were not noted in checking the note before signing.
== END ==
PROVIDERS: PCP Family Medicine; Referring Provider Physician Assistant Medical; Visit Provider Physician Assistant Medical
DX: I48.91 Unspecified atrial fibrillation (principal); I10 Essential (primary) hypertension; R07.9 Chest pain, unspecified
CPT/HCPCS: 78452; 93017; A9500; A4216

== ENCOUNTER → 2020-03-25 20:22 | Outpatient (CLI) | payer OTHER, SELFPAY ==
[2020-03-04 08:33] VITALS: BMI 29.7
== END ==
PROVIDERS: PCP Family Medicine; Referring Provider Physician Assistant Medical; Visit Provider Physician Assistant Medical
DX: G47.10 Hypersomnia, unspecified (principal); I10 Essential (primary) hypertension; I48.91 Unspecified atrial fibrillation; R07.9 Chest pain, unspecified
CPT/HCPCS: 95810

== ENCOUNTER → 2020-03-26 06:40 | Outpatient (CLI) | payer OTHER, SELFPAY ==
[2020-03-04 08:33] VITALS: BMI 29.7
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
== END ==
PROVIDERS: PCP Family Medicine; Referring Provider Family Medicine; Visit Provider Family Medicine
DX: M54.12 Radiculopathy, cervical region (principal); M54.2 Cervicalgia; R29.898 Other symptoms and signs involving the musculoskeletal system
CPT/HCPCS: 72141

== ENCOUNTER → 2020-07-09 10:26 | Outpatient (CLI) | payer OTHER, SELFPAY ==
[2020-05-13 08:10] VITALS: BMI 29.3
--- NOTE | 2020-05-21 05:11 | HP_ITS ---
Intake Vital Signs 05/13/20 Height 5 ft 10.6 in 05/13/20 Weight: 208 lb 05/13/20 BMI 29.3 05/13/20 BP 142/88 H 05/13/20 Blood Pressure Location Rt brachial 05/13/20 Position Sitting 05/13/20 Respiration 18 05/13/20 Pulse 63 05/13/20 Pulse Source Monitor 05/13/20 Temp 97.7 F L 05/13/20 Temp Source Temporal 05/13/20 Pulse Oximetry (%) 97 05/13/20 Oxygen Delivery Method room air Intake Visit Reasons: C-Scope Chief Complaint: c-scope Coater Carbon Paper Required: No Is patient in pain?: No Allergies erythromycin base Allergy (Verified 05/13/20 08:14) Hives Penicillins [PCN] Allergy (Verified 05/13/20 08:14) Hives Medications Allopurinol 1 tab PO DAILY 11/23/17 [History Confirmed 05/13/20] esomeprazole magnesium 20 mg capsule,delayed release 40 mg PO DAILY cap 01/30/19 [History Confirmed 05/13/20] Ergocalciferol [Vitamin D] 50,000 unit PO QWEEK 02/13/20 [History Confirmed 05/13/20] Tamsulosin HCl [Flomax] 1 tab PO QHS 02/13/20 [History Confirmed 05/13/20] Testosterone Cypionate [Depo-Testosterone] 200 mg IM Q14D 02/13/20 [History Confirmed 05/13/20] busPIRone [Buspar] 15 mg PO TID #90 tab 02/14/20 [Rx Confirmed 05/13/20] lisinopril 10 mg tablet 10 mg PO DAILY #90 tab 02/18/20 [Rx Confirmed 05/13/20] apixaban 5 mg tablet 5 mg PO Q12H #180 tab 03/04/20 [Rx Confirmed 05/13/20] diltiazem HCl 240 mg capsule,extended release 24 hr 240 mg PO DAILY #90 cap 03/04/20 [Rx Confirmed 05/13/20] metoprolol tartrate 25 mg tablet 25 mg PO BID #180 tab 03/04/20 [Rx Confirmed 05/13/20] PFSH Medical History Atrial fibrillation with RVR (Acute) Hyperlipidemia (Chronic) Anxiety (Acute) Arthritis (Acute) GERD (gastroesophageal reflux disease) (Acute) Neck pain (Acute) Shoulder pain (Acute) HTN (hypertension) (Chronic) Surgical History History of colonoscopy (Acute ~2013) History of esophagogastroduodenoscopy (EGD) (Acute) History of kidney surgery (Acute) History of repair of right rotator cuff (Acute) Family History Mother Hypertension Social History (Updated 05/13/20 @ 08:[address] Gurpreet Strickland MD) Smoking Status: Never smoker alcohol intake: current Alcohol type: beer HPI HPI HPI: GUILLERMINA SWAPNIL, is a 55 M who presents to the office today for HPI HPI Surgical H&P: Yes HPI: GUILLERMINAViviana KRAFT, is a 55 M who presents to the office today for Evaluation for colonoscopy. Last saw this patient on 04/04/2020. He was undergoing a rather extensive cardiac work-up and was unable to get off of his Eliquis he has since completed his cardiac work-up is able to get off of his Eliquis and is prepared to undergo an endoscopy. Patient's last colonoscopy was back on 01/07/2014. He did have a suboptimal prep and a repeat colonoscopy in 5 years was recommended. ROS General General: Yes fatigue; no weight change, appetite, colon cancer, breast cancer or weakness HEENT HEENT: No difficulty swallowing, eye injury, eye surgery, swollen glands or hoarseness Endo Endocrine: No thyroid disease, diabetes mellitus, thyroid cancer, Hair loss, heat intolerance or cold intolerance Skin Skin: No rash or changing moles Breast Breast: No left breast lump, right breast lump, nipple discharge, breast pain, abnormal mammogram, abnormal US or breast enlargement Musc Musculoskeletal: Yes back problems, arthritis and gout; no rheumatoid arthritis or joint pain Cardio Cardiovascular: Yes atrial fibrillation and high blood pressure; no murmur, pacemaker, heart disease, heart attack, heart stent, palpitations, shortness of breat with exertion or chest pain Psych Psychiatric: Yes anxiety; no depression or hearing voices Resp Respiratory: No shortness of breath, No sleep apnea, No cough, No COPD, No asthma, No emphysema, No wheezing Gastro Gastrointestinal: No abdominal pain, No nausea or vomiting, No diarrhea, No constipation, No blood in stool, Yes acid reflux, No hemorrhoids, No ulcers, No gallbladder problem, No black,tarry stools Ben Hematologic: Yes blood thinners, No blood disorders, No bleeding, No anemia, No blood clots Neuro Neurologic: No system reviewed and no additional complaints, except as docu, No as per HPI, No abnormal walking, No abnormal hearing, No abnormal movements, No abnormal speech, No behavioral changes, No burning sensations, No confusion, No seizure-like activity, No unsteadiness, No dizziness, No localized weakness, No frequent falls, No headache(s), No lack of coordination, No loss of vision, No memory loss, No numbness, No other visual disturbances, No radiating pain, No restless legs, No sensory deficit, No fainting, No tingling, No tremor(s), No weakness, No other Exam Const General: no acute distress, well developed, well hydrated Orientation: oriented to person, oriented to place, oriented to time [facility] Head: normocephalic, atraumatic Ears: external ears normal Mouth: moist mucous membranes Eyes Sclera: sclerae normal Pupils: normal by confrontation Neck Neck: no lymphadenopathy noted Neck mass: No Thyroid: thyroid normal, symmetrical Chest Chest palpation & inspection: normal inspection of the chest Breast Palpation: No nipple discharge Resp Effort & Inspection: normal respiratory effort Auscultation: clear to auscultation bilaterally Percussion: percussion normal Cardio Rate: regular rate Rhythm: regular rhythm Heart Sounds: no murmurs GI Palpation: soft, no hepatosplenomegaly, no masses, nontender Rectal Exam: other Other: Rectal exam deferred. Extrem General: normal to inspection, no clubbing, cyanosis or edema Assessment & Plan Problems 1. Encounter for screening colonoscopy Z12.11 Plan I have discussed the above with the patient. I have offered the patient colonoscopy for evaluation. I have explained the risks/benefits of the procedure and described the procedure. I have discussed the risks with the patient, including but not limited to: infection, bleeding, perforation of the GI tract requiring emergency surgery, inability to complete the procedure, injury to any internal organs, complications of anesthesia, etc. - the patient understands and agrees to proceed. I have answered all the patient's questions to the patient's satisfaction and the patient has no further questions. The patient has been given instructions for the colon cleansing preparation. He will be off of his Eliquis for at least 6 days. Coding Level of Care Code Off vis,est,level 3 Diagnoses Encounter for screening colonoscopy Z12.11 COVID (Procedure Consent) Procedure Criteria Procedure Criteria: Yes Elective The surgeon/proceduralist and patient have discussed in detail the risk of exposure to and/or potential harm posed by the COVID-19 virus with having a surgery/procedure at this time versus the risk of? delaying the surgery/procedure. It is not possible to know either the risk of delaying the surgery or procedure or chance of getting an infection with perfect accuracy, but a joint decision was made between the patient and the surgeon/proceduralist ?to proceed at this time with the scheduled surgery/procedure as indicated on the consent form.
[2020-06-18 10:31] VITALS: BMI 30.2
== END ==
PROVIDERS: PCP Family Medicine; Referring Provider Family Medicine; Visit Provider Surgery
DX: Z01.812 Encounter for preprocedural laboratory examination (principal); I48.91 Unspecified atrial fibrillation; E78.5 Hyperlipidemia, unspecified; M19.90 Unspecified osteoarthritis, unspecified site; K21.9 Gastro-esophageal reflux disease without esophagitis; I10 Essential (primary) hypertension; F41.9 Anxiety disorder, unspecified; Z79.899 Other long term (current) drug therapy; Z79.01 Long term (current) use of anticoagulants

== ENCOUNTER 2020-12-05 18:02 | Emergency (ER) | payer OTHER, SELFPAY ==
[2020-06-18 10:31] VITALS: BMI 30.2
[2020-12-05 18:03] VITALS: BP 131/79; PULSE 56; RESP 16; TEMP 36.1; O2SAT 99; BMI 28.7
--- NOTE | 2020-12-05 18:39 | EKG12_ITS ---
Test Reason : DYSRHYTHMIA Blood Pressure : / mmHG Vent. Rate : 052 BPM Atrial Rate : 052 BPM P-R Int : 174 ms QRS Dur : 084 ms QT Int : 432 ms P-R-T Axes : 026 056 048 degrees QTc Int : 401 ms Sinus bradycardia Otherwise normal ECG Confirmed by ALFREDA WYATT, DEEPAK ([id number]), commissioning editor MARTHA COPPOLA ([id number]) on 12/09/2020 9:01:34 AM Referred By: KEITH Confirmed By:DEEPAK GANT MD
--- NOTE | 2020-12-05 18:40 | EX.ED.DYSGE1 ---
HPI History of Present Illness Chief Complaint: Dizziness Informant: patient and spouse/S.O. Onset/Context/Timing Onset: Days Timing: Intermittent Current Severity: Mild Maximum Severity: Moderate Narrative Narrative: Patient presents secondary to intermittent episodes of lightheadedness and dizziness. He states that occasionally when he stands up he will feel lightheaded and dizzy. He has had recent shortness of breath with exertion and some pain to the shoulder region. Patient was admitted to the hospital last fall with paroxysmal A. fib. He was told to be checked out again if he had any similar symptoms. 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 [facility] Medical History (Updated 12/05/20 @ 20:[address] Khalida Driscoll MD) Anxiety Arthritis Atrial fibrillation with RVR GERD (gastroesophageal reflux disease) HTN (hypertension) Hyperlipidemia Neck pain Shoulder pain Home Medications esomeprazole magnesium 20 mg capsule,delayed release 40 mg PO DAILY cap 01/30/19 [History Last Taken Unknown] ergocalciferol (vitamin D2) 50,000 unit PO QWEEK 02/13/20 [History Last Taken Unknown] tamsulosin 1 tab PO QHS 02/13/20 [History Last Taken Unknown] testosterone cypionate 200 mg IM Q14D 02/13/20 [History Last Taken Unknown] diltiazem HCl 240 mg capsule,extended release 24 hr 240 mg PO DAILY #90 cap 03/04/20 [Rx Last Taken Unknown] metoprolol tartrate 25 mg tablet 25 mg PO BID #180 tab 03/04/20 [Rx Last Taken Unknown] escitalopram oxalate 10 mg PO DAILY 05/16/20 [History Last Taken Unknown] lisinopril 10 mg PO QHS 05/16/20 [History Last Taken Unknown] Allergy/AdvReac Type Severity Reaction Status Date / Time erythromycin base Allergy Hives Verified 12/05/20 18:05 Penicillins [PCN] Allergy Hives Verified 12/05/20 18:05 Family History Mother Hypertension Surgical History History of colonoscopy (~2012) History of esophagogastroduodenoscopy (EGD) History of kidney surgery History of repair of right rotator cuff Social History Smoking Status: Never smoker alcohol intake: current Alcohol type: beer ROS ROS ED Constitutional Constitutional ED: Denies chills or fever(s) Eyes Eyes: Denies change in vision ENT ENT ED: Denies sore throat Cardiovascular Cardiovascular: Denies chest pain Respiratory/Chest Respiratory/Chest: Reports dyspnea; Denies cough Gastrointestinal Gastrointestinal: Denies abdominal pain, diarrhea, nausea or vomiting Genitourinary Genitourinary ED: Denies dysuria Musculoskeletal Musculoskeletal: Reports back pain Integumentary Denies rash Neurologic Neurologic: Denies headache(s) or weakness Psychiatric Psychiatric: Denies anxiety or depression Allergic/Immunologic Allergic/Immunologic ED: Denies urticaria EXAM Physical Exam Const Vital Signs: 12/05/20 18:03 12/05/20 18:14 12/05/20 19:59 Temperature 97 F L Temperature Source Temporal Pulse Rate 56 L 59 L Respiratory Rate 16 16 Respiratory Effort Normal Respiratory Pattern Normal Blood Pressure 131/79 H 144/88 H Blood Pressure Mean 96 106 Pulse Ox 99 97 Oxygen Delivery Method Room Air Positive well nourished and well developed General Appearance ED: well developed HEENT Reports normocephalic and head/scalp atraumatic Eyes PERRL and EOMs intact bilaterally Neck supple Chest Wall inspection of chest normal and palpation of chest normal Resp normal respiratory effort and clear to auscultation bilaterally Cardio regular rhythm Rate: bradycardia GI normal to inspection, nondistended, normoactive bowel sounds Palpation: soft Extremity normal to inspection Neuro oriented x3 and no sensory deficits noted Sensorium / Orientation: alert Motor Exam: strength 5/5 throughout Psych mental status grossly normal Skin no rashes or lesions noted MDM MDM MDM Narrative Medical decision making narrative: Labs, EKG, chest x-ray obtained. Lab Data Attestation: I reviewed the patient's lab results. Labs: Laboratory Results - last 24 hr 12/05/20 12/05/20 12/05/20 18:25 18:25 18:50 WBC 8.2 RBC 4.73 Hgb 14.7 Hct 44.1 MCV 93.2 MCH 31.1 MCHC 33.3 RDW Std Deviation 42.7 RDW Coeff of Ignacio 12.4 Plt Count 223 MPV 11.3 Immature Gran % (Auto) 0.400 Neut % (Auto) 66.3 Lymph % (Auto) 22.9 [place] % (Auto) 8.1 Eos % (Auto) 1.7 Baso % (Auto) 0.6 Absolute Neuts (auto) 5.4 Absolute Lymphs (auto) 1.87 Nucleated RBC % 0 D-Dimer Quant (PE/DVT) 0.29 Sodium 140 Potassium 4.1 Chloride 108 H Carbon Dioxide 28.0 Anion Gap 4 L BUN 17 Creatinine 0.90 Estim Creat Clear Calc 93.50 Est GFR (MDRD) Af Amer 111 Est GFR (MDRD) Non-Af 92 BUN/Creatinine Ratio 18.8 Glucose 100 Calcium 9.0 Troponin I High Sens 3.4 Radiography Chest X-Ray - ED: 1 View, Read by ED Physician, Normal, Heart, Lungs and Mediastinum Diagnostic Testing: Radiology Impression Chest X-Ray 12/05/20 18:50 IMPRESSION: Normal x-ray examination of the chest. Electronically Signed: Malick Wolfe MD at 19:23 EDT , Service support , EKG Initial EKG: Attestation: I personally reviewed and interpreted this EKG as follows: Interpretation: Sinus Bradycardia (Sinus bradycardia 52 bpm. No acute ischemia.) Treatment and Re-Evaluation Comments:: Patient relates symptoms of orthostatic hypotension. His heart rate is in the 50s. Patient is currently both on metoprolol and diltiazem. He has not had recurrent atrial fibrillation since he was in the hospital last year. I did recommend he hold his metoprolol for the next several days. He has an appointment with cardiology on Tuesday. They will be able to reevaluate his heart rate at that time and make further adjustments to medications as needed. Discharge Plan Triage Chief Complaint: Dizziness ED Provider: Khalida Driscoll Dx/Rx/DC Orders Clinical Impression: Bradycardia, Dizziness Instructions: ED Bradycardia Prescriptions: No Action diltiazem HCl 240 mg capsule,extended release 24hr 240 mg PO DAILY Qty: 90 RF: 3 metoprolol tartrate 25 mg tablet 25 mg PO BID Qty: 180 RF: 3 esomeprazole magnesium 20 mg capsule,delayed release(DR/EC) 40 mg PO DAILY RF: 0 ergocalciferol (vitamin D2) 50,000 UNIT capsule 50,000 unit PO QWEEK RF: 0 testosterone cypionate 200 MG/ML oil 200 mg IM Q14D RF: 0 tamsulosin 0.4 MG capsule 1 tab PO QHS RF: 0 escitalopram oxalate 10 MG tablet 10 mg PO DAILY RF: 0 lisinopril 10 MG tablet 10 mg PO QHS RF: 0 Primary Care Provider: Yola Hardin Referrals: Yola Hardin DO [Primary Care Provider] - Activity Restrictions/Additional Instructions: Follow-up with cardiology on Tuesday as scheduled. Disposition Disposition: Home, Self Care
--- NOTE | 2020-12-05 18:50 | RAD_ITS ---
STUDY: X-RAY CHEST REASON FOR EXAM: Male, 55 years old. sob TECHNIQUE: AP portable COMPARISON: 02/13/2020 FINDINGS: The lungs are clear and expanded. There is no demonstrated pleural abnormality. Normal size heart. Normal mediastinum and dave. Normal visualized pulmonary arteries. Normal visualized aortic arch and descending thoracic aorta. Normal visualized thoracic spine. Normal visualized ribs, clavicles, and shoulders. There is no demonstrated abnormality of the visualized soft tissue structures of the upper abdomen. RAD/Chest 1 View (Portable) IMPRESSION: Normal x-ray examination of the chest. Electronically Signed: Malick Wolfe MD at 19:23 EDT , Service support ,
[2020-12-05 18:54] LABS: Absolute Lymphocyte Count 1.87 X10^3/uL (0.83-4.51); Absolute Neutrophil Count 5.4 X10^3/uL (2.0-7.7); Basophil# 0.05 X10^3/uL; Basophil% 0.6 % (0-1); Eosinophil# 0.14 X10^3/uL; Eosinophils% 1.7 % (0-5); Hematocrit 44.1 % (40-54); Hemoglobin 14.7 g/dL (13.0-16.5); Lymphocyte # 1.87 X10^3/ul (0.83-4.51); Lymphocyte % 22.9 % (19-41); Mean Corp Hgb Conc 33.3 g/dL (32-36); Mean Corpuscular Hgb 31.1 pg (27.0-32.0); Mean Corpuscular Volume 93.2 fL (80-94); Mean Platelet Vol. 11.3 fl (6.2-12.0); Monocyte# 0.66 X10^3/uL; Monocyte% 8.1 % (0-10); NRBC Flagged by Analyzer 0 % (0-5); Neutrophil # 5.41 X10^3/uL (2.7-7.7); Neutrophil % 66.3 % (47-70); Platelet Count 223 K/mm3 (150-450); RBC Distribution Width CV 12.4 % (11.6-14.6); RBC Distribution Width SD 42.7 fl (35.1-43.9); Red Blood Count 4.73 M/mm3 (4.6-6.2); White Blood Count 8.2 K/mm3 (4.4-11.0)
[2020-12-05 19:05] LABS: D-Dimer Quantitative (DVT/PE) 0.29 FEU/ug/m (0.27-0.49)
[2020-12-05 19:11] LABS: Anion Gap 4 (5-15); BUN 17 mg/dL (7-18); BUN/Creat Ratio 18.8 RATIO (10-20); Chloride 108 mmol/L (98-107); EST Glomerular Filtration Rate 92 mL/min (>60); Est Glom Filt Rate - Afr Amer 111 mL/min (>60); Glucose 100 mg/dL (74-106); Potassium 4.1 mmol/L (3.5-5.1); Sodium Level 140 mmol/L (136-145); Troponin-I HS 3.4 pg/mL (3.0-78.5)
[2020-12-05 19:59] VITALS: BP 144/88; PULSE 59; RESP 16; O2SAT 97
[2020-12-05 20:35] VITALS: PULSE 56; RESP 24
== END 2020-12-05 20:38 | disposition home or self-care (01) ==
PROVIDERS: Emergency Provider Emergency Medicine; PCP Family Medicine
DX: R00.1 Bradycardia, unspecified (principal); R42 Dizziness and giddiness; I10 Essential (primary) hypertension; I48.0 Paroxysmal atrial fibrillation; Z79.899 Other long term (current) drug therapy
CPT/HCPCS: 71045; 80048; 84484; 85025; 85379; 93005; 96360; 96361; 99284; J7040; A4216

== ENCOUNTER → 2021-01-01 11:59 | Outpatient (CLI) | payer OTHER, SELFPAY ==
[2021-01-01 14:14] LABS: PSA,Total - Annual Screen 1.83 ng/mL (0.00-4.00)
== END ==
PROVIDERS: PCP Family Medicine; Referring Provider Nurse Practitioner Adult Health; Visit Provider Nurse Practitioner Adult Health
DX: Z12.5 Encounter for screening for malignant neoplasm of prostate (principal)
CPT/HCPCS: 36415; 84153; G0103

== ENCOUNTER 2021-04-04 11:35 | Outpatient (CLI) | payer OTHER, SELFPAY ==
[2021-04-04 11:50] VITALS: BP 112/80; PULSE 57; RESP 16; TEMP 36.6; O2SAT 97; BMI 28.7
[2021-04-04] MEDS: 0.9% Saline Lock 10 ML Syringe IV (11:57)
[2021-04-04 12:51] VITALS: BP 113/72; PULSE 56; RESP 16; TEMP 36.8; O2SAT 98
[2021-04-04 13:27] VITALS: BP 113/75; PULSE 58; RESP 16; TEMP 36.6; O2SAT 98
== END 2021-04-04 13:35 | disposition home or self-care (01) ==
LOC: MS3OUT 11:36 → MS3 11:36
PROVIDERS: PCP Family Medicine; Referring Provider Nurse Practitioner Adult Health; Visit Provider Nurse Practitioner Adult Health
DX: Z23 Encounter for immunization (principal); U07.1 COVID-19
CPT/HCPCS: J7050; M0245; Q0245; A4216

== ENCOUNTER → 2021-09-10 | Outpatient (CLI) | payer OTHER, SELFPAY ==
[2021-09-10 09:31] LABS: Anion Gap 7 (5-15); BUN 22 mg/dL (7-18); Calcium,Total 9.3 mg/dL (8.5-10.1); Chloride 103 mmol/L (98-107); EST Glomerular Filtration Rate 82 mL/min (>60); Est Glom Filt Rate - Afr Amer 99 mL/min (>60); Glucose 131 mg/dL (74-106); Sodium Level 139 mmol/L (136-145)
== END | disposition home or self-care (01) ==
LOC: LAB 08:26
PROVIDERS: PCP Family Medicine; Referring Provider Physician Assistant Medical; Visit Provider Physician Assistant Medical
DX: I10 Essential (primary) hypertension (principal); I48.0 Paroxysmal atrial fibrillation
CPT/HCPCS: 36415; 80048

== ENCOUNTER → 2021-11-24 | Outpatient (CLI) | payer OTHER, SELFPAY ==
[2021-11-24 10:14] LABS: Absolute Lymphocyte Count 1.59 X10^3/uL (0.83-4.51); Absolute Neutrophil Count 3.9 X10^3/uL (2.0-7.7); Basophil# 0.04 X10^3/uL; Basophil% 0.6 % (0-1); Eosinophil# 0.13 X10^3/uL; Eosinophils% 2.1 % (0-5); Hematocrit 42.2 % (40-54); Hemoglobin 14.2 g/dL (13.0-16.5); Lymphocyte # 1.59 X10^3/ul (0.83-4.51); Lymphocyte % 25.4 % (19-41); Mean Corp Hgb Conc 33.6 g/dL (32-36); Mean Corpuscular Hgb 31.2 pg (27.0-32.0); Mean Corpuscular Volume 92.7 fL (80-94); Monocyte% 9.6 % (0-10); NRBC Flagged by Analyzer 0 % (0-5); Neutrophil % 62.1 % (47-70); Platelet Count 220 K/mm3 (150-450); RBC Distribution Width CV 12.9 % (11.6-14.6); RBC Distribution Width SD 43.7 fl (35.1-43.9); Red Blood Count 4.55 M/mm3 (4.6-6.2); White Blood Count 6.3 K/mm3 (4.4-11.0)
[2021-11-24 10:33] LABS: Hemoglobin A1c 6.1 % (3.8-5.6)
[2021-11-24 10:43] LABS: Vitamin D,25 Hydroxy 77.1 ng/mL
[2021-11-24 11:10] LABS: ALB/GLOB Ratio 0.9 RATIO (0.9-2.4); AST(SGOT) 20 U/L (15-37); Alanine Aminotransfer ALT/SGPT 38 U/L (16-61); Albumin, Serum 3.5 g/dL (3.2-5.0); Alkaline Phosphatase 40 U/L (45-117); Anion Gap 5 (5-15); BUN 28 mg/dL (7-18); BUN/Creat Ratio 26.2 RATIO (10-20); Chloride 105 mmol/L (98-107); Cholesterol 247 mg/dL (200); Creatinine, Serum 1.07 mg/dL (0.70-1.30); EST Glomerular Filtration Rate 75 mL/min (>60); Est Glom Filt Rate - Afr Amer 91 mL/min (>60); Globulin 3.7 g/dL (2.2-4.2); Glucose 118 mg/dL (74-106); High Density Lipoprotein 34 mg/dL; Potassium 4.1 mmol/L (3.5-5.1); Protein, Total 7.2 g/dL (6.4-8.2); Sodium Level 137 mmol/L (136-145); Thyroid Stim Hormone (TSH) 1.47 uIU/mL (0.358-3.74); Triglycerides 316 mg/dL; Very Low Density Lipoprotein 63 mg/dL (5-40)
== END | disposition home or self-care (01) ==
LOC: LAB 08:59
PROVIDERS: PCP Internal Medicine; Referring Provider Internal Medicine; Visit Provider Internal Medicine
DX: I48.0 Paroxysmal atrial fibrillation (principal); I10 Essential (primary) hypertension; E78.5 Hyperlipidemia, unspecified; G47.33 Obstructive sleep apnea (adult) (pediatric); E55.9 Vitamin D deficiency, unspecified; E88.81 Metabolic syndrome and other insulin resistance
CPT/HCPCS: 36415; 80053; 80061; 82306; 83036; 84443; 85025

== ENCOUNTER → 2021-12-04 | Outpatient (CLI) | payer OTHER, SELFPAY ==
[2021-12-04 10:19] LABS: ALB/GLOB Ratio 0.9 RATIO (0.9-2.4); AST(SGOT) 10 U/L (15-37); Alanine Aminotransfer ALT/SGPT 43 U/L (16-61); Albumin, Serum 3.3 g/dL (3.2-5.0); Alkaline Phosphatase 45 U/L (45-117); BUN 19 mg/dL (7-18); BUN/Creat Ratio 20.1 RATIO (10-20); Calcium,Total 8.6 mg/dL (8.5-10.1); Cholesterol 249 mg/dL (200); Creatinine, Serum 0.94 mg/dL (0.70-1.30); EST Glomerular Filtration Rate 87 mL/min (>60); Est Glom Filt Rate - Afr Amer 105 mL/min (>60); Globulin 3.6 g/dL (2.2-4.2); Glucose 134 mg/dL (74-106); Protein, Total 6.9 g/dL (6.4-8.2); Triglycerides 817 mg/dL
[2021-12-04 10:20] LABS: Anion Gap 9 (5-15); Chloride 106 mmol/L (98-107); High Density Lipoprotein 24 mg/dL; Sodium Level 138 mmol/L (136-145)
== END | disposition home or self-care (01) ==
LOC: LAB 08:25
PROVIDERS: PCP Internal Medicine; Visit Provider Internal Medicine
DX: I10 Essential (primary) hypertension (principal); E78.5 Hyperlipidemia, unspecified; E88.81 Metabolic syndrome and other insulin resistance
CPT/HCPCS: 36415; 80053; 80061; 83036

== ENCOUNTER → 2021-12-08 | Outpatient (CLI) | payer OTHER, SELFPAY ==
[2021-12-08 09:45] LABS: Glucose 119 mg/dL (74-106)
[2021-12-08 09:53] LABS: Insulin 11.3 mU/L (2.6-37.6)
== END | disposition home or self-care (01) ==
LOC: LAB 08:31
PROVIDERS: PCP Internal Medicine; Referring Provider Internal Medicine; Visit Provider Internal Medicine
DX: E88.81 Metabolic syndrome and other insulin resistance (principal)
CPT/HCPCS: 36415; 82947; 83525

== ENCOUNTER 2022-05-11 07:51 | Day surgery (SDC) | payer OTHER, SELFPAY ==
[2022-05-11] VITALS (7 sets, daily range): BP systolic 112–126; BP diastolic 76–95; PULSE 61–66; RESP 16–18; TEMP 36.4–36.5; O2SAT 96–98; BMI 29.2
[2022-05-11] MEDS: Lactated Ringers 1,000 ML 15 ML IV (08:33)
--- NOTE | 2022-05-11 09:00 | COLBX_PTH ---
PATIENT: GUILLERMINA KRAFT LOC: [facility] U#:[id number] AGE/SX: 57/M ROOM: RE05/11/[address]: Dr. Nathan Valentine MD : 1965 BED: DIS: 05/11/2022 SPEC #: [id number] RECD: 05/11/22 09:54 STATUS: ROSARIO SHAHRZAD #: [id number] MICHELLE: 05/11/22 09:[address]: Nathan Valentine DEPT: SURGICAL PATHOLOGY RECD BY: Mahnaz Arriaga ENTERED: 05/11/22 11:06 SP TYPE: COLON BX OTHR DR: Dr. Yola Hardin DO Tissues: COLON BIOPSY Procedures: Surgery Specimen Level IV HEADER OPERATION: Colonoscopy ? open access (MAC), biopsy PRE-OP DIAGNOSIS: Screening for intestinal cancer TISSUE SUBMITTED: Cecal polyp biopsy MICROSCOPIC DIAGNOSIS Cecal polyp, biopsy: Tubular adenoma. AM:ira 05/12/2022 MICROSCOPIC DESCRIPTION Slides are reviewed. GROSS DESCRIPTION Received in fixative is one container labeled with the patient's name and designated cecal polyp biopsy. The specimen consists of one irregular fragment of light patricio soft tissue that measures 0.3 x 0.2 x 0.1 cm. The specimen is totally submitted in one cassette. / SJ:ira 05/11/2022 TC:5 CPT: 20634
--- NOTE | 2022-05-11 09:11 | PCM.HP.STD ---
[facility] - General General Date of Service: 05/11/22 Chief Complaint: Screening for intestinal cancer [facility] Narrative GUILLERMINA KRAFT, is a 57 M who presents for screening colonoscopy today. Previous one was 10 years ago. He denies any bright red blood per rectum or melena. He does have some reflux symptoms and some nonspecific abdominal pain but that has been chronic. He had atrial fibrillation 2 years ago but otherwise feels like he is in good health. [facility] Medical History (Updated 05/11/22 @ 09:[address] Nathan Valentine MD) Anxiety Arthritis Atrial fibrillation with RVR (02/13/20) Back problem Bradycardia Cardiology follow-up encounter Chronic cough COVID-19 (04/02/21) Essential hypertension Gastric reflux GERD (gastroesophageal reflux disease) Gout History of atrial fibrillation History of cervantes Hyperlipidemia Hypertension Kidney stones Neck pain Non-smoker Prostate disease Restless legs Shoulder pain UTI (urinary tract infection) Wears glasses Home Medications ergocalciferol (vitamin D2) 1,250 mcg (50,000 unit) capsule 50,000 unit PO QWEEK vitamin 02/13/20 [History Last Taken Unknown] aspirin 81 mg tablet,delayed release (Adult Aspirin Regimen) 81 mg PO DAILY 12/09/20 [History Last Taken 05/07/22] lisinopril 10 mg tablet 10 mg PO DAILY #0 tabs 11/24/21 [Rx Last Taken 05/11/22] escitalopram oxalate 10 mg tablet 10 mg PO DAILY #90 tabs 12/30/21 [Rx Last Taken Unknown] tamsulosin 0.4 mg capsule 0.4 mg PO BID #180 caps 12/30/21 [Rx Last Taken Unknown] metoprolol tartrate 25 mg tablet 25 mg PO BID #180 tabs 04/01/22 [Rx Last Taken 05/11/22] Allergy/AdvReac Type Severity Reaction Status Date / Time erythromycin base Allergy Hives Verified 05/11/22 08:31 Penicillins [PCN] Allergy Hives Verified 05/11/22 08:31 Family History Mother Hypertension Other Anxiety Arthritis Cancer Depression Diabetes Surgical History H/O skin graft History of colonoscopy (2012) History of esophagogastroduodenoscopy (EGD) History of kidney surgery History of repair of right rotator cuff Social History Smoking Status: Never smoker alcohol intake: current Alcohol type: beer ROS Constitutional Constitutional: Reports systems reviewed and no addt'l complaints, except as documented Cardiovascular Cardiovascular: Denies chest pain Respiratory/Chest Respiratory/Chest: Denies shortness of breath at rest Gastrointestinal Gastrointestinal: Denies abdominal pain, change in bowel habits, hematochezia or melena Vital Signs Vital Signs Vital Signs: 05/11/22 08:33 05/11/22 08:33 Temperature 97.7 F L Temperature Source Temporal Pulse Rate 66 Respiratory Rate 18 Respiratory Pattern Normal Blood Pressure 120/76 Blood Pressure Mean 90 Blood Pressure Source Monitor Blood Pressure Position Semi-Fowlers Blood Pressure Location Right Arm Pulse Ox 97 Oxygen Delivery Method Room Air Weight Weight: 203 lb 14.841 oz Body Mass Index (BMI) 29.2 Physical Exam Const alert, oriented x3 and no apparent distress General Appearance: cooperative and comfortable Eyes General Eye: normal appearance of both eyes Neck General: normal visual inspection Chest inspection of chest normal Resp Effort and Inspection: able to speak in complete sentences and symmetric chest movement Auscultation: clear to auscultation bilaterally Cardio regular rate and regular rhythm GI soft to palpation, non-tender and non-distended Extremity no calf tenderness Neuro oriented x3 Psych thought process normal Assessment & Plan Assessment/Plan (1) Screening for intestinal cancer: PLAN: The patient presents via open access today for screening colonoscopy with possible biopsy or polypectomy as indicated. He is aware of the technique, benefit, risk, alternatives. He has had an opportunity to ask and have questions answered. We will proceed as noted. Nathan Valentine M.D., F.A.C.S.
--- NOTE | 2022-05-11 09:38 | OP.CCLET_ITS ---
05/11/2022 Yola Hardin [address] [place] [address] Re : Colonoscopy procedure for Roldan Patton Dear Dr. Hardin This procedure was performed on Wednesday, May 11, 2022. My impressions and recommendations are as follows: Impressions : - Non-thrombosed internal hemorrhoids and internal hemorrhoids that prolapse with straining, but spontaneously regress to the resting position (Grade II) found on digital rectal exam. - One 3 mm polyp in the cecum, removed with a cold biopsy forceps. Resected and retrieved. - Diverticulosis in the sigmoid colon. Recommendations : - Discharge patient to home. - Resume previous diet. - Continue present medications. - Repeat colonoscopy in 5 years for surveillance based on pathology results. - Telephone my office for pathology results in 1 week. My findings are described in the full procedure note, which is enclosed. If I can be of further assistance, please feel free to contact me at Doctor phone number(s): Work: . Sincerely, Nathan Valentine MD 05/11/2022 9:37:28 AM This report has been signed electronically.
--- NOTE | 2022-05-11 09:38 | OP.COLON_ITS ---
Patient Name: Roldan Patton Procedure Date: 05/11/2022 9:11 AM Date of : 1965 Age: 57 Procedure: Colonoscopy Indications: Screening for colorectal malignant neoplasm Providers: Nathan Valentine MD Referring MD: Nathan Valentine MD Medicines: See the Anesthesia note for documentation of the administered medications Patient Profile: Last Colonoscopy: 10 years ago. Complications: No immediate complications. Procedure: Pre-Anesthesia Assessment: - Prior to the procedure, a History and Physical was performed, and patient medications and allergies were reviewed. The patient's tolerance of previous anesthesia was also reviewed. The risks and benefits of the procedure and the sedation options and risks were discussed with the patient. All questions were answered, and informed consent was obtained. Prior Anticoagulants: The patient has taken no previous anticoagulant or antiplatelet agents. ASA Grade Assessment: II - A patient with mild systemic disease. After reviewing the risks and benefits, the patient was deemed in satisfactory condition to undergo the procedure. After I obtained informed consent, the scope was passed under direct vision. Throughout the procedure, the patient's blood pressure, pulse, and oxygen saturations were monitored continuously. The Colonoscope was introduced through the anus and advanced to the cecum, identified by appendiceal orifice and ileocecal valve. The colonoscopy was performed without difficulty. The patient tolerated the procedure well. The quality of the bowel preparation was good. The ileocecal valve and the appendiceal orifice were photographed. Scope In: 9:20:23 AM Scope Withdrawal Time 0 hours 8 minutes 54 seconds Scope Out: 9:33:04 AM Total Procedure Duration Time 0 hours 12 minutes 41 seconds Findings: The digital rectal exam findings include non-thrombosed internal hemorrhoids and internal hemorrhoids that prolapse with straining, but spontaneously regress to the resting position (Grade II). Pertinent negatives include normal prostate (size, shape, and consistency). A 3 mm polyp was found in the cecum. The polyp was sessile. The polyp was removed with a cold biopsy forceps. Resection and retrieval were complete. Multiple diverticula were found in the sigmoid colon. Impression: - Non-thrombosed internal hemorrhoids and internal hemorrhoids that prolapse with straining, but spontaneously regress to the resting position (Grade II) found on digital rectal exam. - One 3 mm polyp in the cecum, removed with a cold biopsy forceps. Resected and retrieved. - Diverticulosis in the sigmoid colon. Recommendation: - Discharge patient to home. - Resume previous diet. - Continue present medications. - Repeat colonoscopy in 5 years for surveillance based on pathology results. - Telephone my office for pathology results in 1 week. Procedure Code(s): --- Professional --- 78187, Colonoscopy, flexible; with biopsy, single or multiple Diagnosis Code(s): --- Professional --- Z12.11, Encounter for screening for malignant neoplasm of colon K64.1, Second degree hemorrhoids D12.0, Benign neoplasm of cecum K57.30, Diverticulosis of large intestine without perforation or abscess without bleeding CPT copyright 2017 [employer]. All rights reserved. The codes documented in this report are preliminary and upon saw handle assembler review may be revised to meet current compliance requirements. Nathan Valentine MD 05/11/2022 9:37:28 AM This report has been signed electronically. Number of Addenda: 0 Note Initiated On: 05/11/2022 9:11 AM
== END 2022-05-11 10:21 | disposition home or self-care (01) ==
LOC: EN 07:54 → AC 07:55
PROVIDERS: PCP Family Medicine; Referring Provider Family Medicine; Visit Provider Surgery
PROC: 0DJD8ZZ Inspection of Lower Intestinal Tract, Via Natural or Artificial Opening Endoscopic (ICD-10-PCS; CPT 45378; principal; 2022-05-11 08:55)
DX: Z12.11 Encounter for screening for malignant neoplasm of colon (principal); I48.0 Paroxysmal atrial fibrillation; D12.0 Benign neoplasm of cecum; K64.1 Second degree hemorrhoids; I10 Essential (primary) hypertension; E78.5 Hyperlipidemia, unspecified; K57.30 Diverticulosis of large intestine without perforation or abscess without bleeding; Z79.82 Long term (current) use of aspirin; Z79.899 Other long term (current) drug therapy; Z86.16 Personal history of COVID-19
CPT/HCPCS: 45380; 88305; J7120; J2405

== ENCOUNTER → 2022-06-10 | Outpatient (CLI) | payer OTHER, SELFPAY ==
[2022-06-10 12:05] LABS: Absolute Neutrophil Count 3.3 X10^3/uL (2.0-7.7); Basophil# 0.04 X10^3/uL; Basophil% 0.7 % (0-1); Eosinophil# 0.08 X10^3/uL; Eosinophils% 1.5 % (0-5); Hematocrit 45.3 % (40-54); Hemoglobin 15.4 g/dL (13.0-16.5); Mean Corpuscular Volume 91.1 fL (80-94); Mean Platelet Vol. 11.6 fl (6.2-12.0); Monocyte# 0.48 X10^3/uL; NRBC Flagged by Analyzer 0 % (0-5); Neutrophil # 3.25 X10^3/uL (2.7-7.7); Neutrophil % 60.6 % (47-70); Platelet Count 231 K/mm3 (150-450); RBC Distribution Width CV 13.1 % (11.6-14.6); RBC Distribution Width SD 43.3 fl (35.1-43.9); Red Blood Count 4.97 M/mm3 (4.6-6.2); White Blood Count 5.4 K/mm3 (4.4-11.0)
[2022-06-10 12:33] LABS: Hemoglobin A1c 5.9 % (3.8-5.6)
[2022-06-10 12:42] LABS: AST(SGOT) 24 U/L (15-37); Alanine Aminotransfer ALT/SGPT 48 U/L (16-61); Albumin, Serum 3.6 g/dL (3.2-5.0); Alkaline Phosphatase 39 U/L (45-117); Anion Gap 8 (5-15); BUN 22 mg/dL (7-18); BUN/Creat Ratio 24.7 RATIO (10-20); Calcium,Total 9.5 mg/dL (8.5-10.1); Chloride 106 mmol/L (98-107); Cholesterol 267 mg/dL (200); Creatinine, Serum 0.89 mg/dL (0.70-1.30); EST Glomerular Filtration Rate 93 mL/min (>60); Est Glom Filt Rate - Afr Amer 113 mL/min (>60); Globulin 3.7 g/dL (2.2-4.2); Glucose 123 mg/dL (74-106); High Density Lipoprotein 42 mg/dL; PSA,Total - Annual Screen 1.84 ng/mL (0.00-4.00); Potassium 4.7 mmol/L (3.5-5.1); Protein, Total 7.3 g/dL (6.4-8.2); Sodium Level 141 mmol/L (136-145); Triglycerides 200 mg/dL; Very Low Density Lipoprotein 40 mg/dL (5-40)
[2022-06-10 17:40] LABS: Xtra Tube EP Lab EXTRA TUBE
== END | disposition home or self-care (01) ==
LOC: BFHLAB 09:34
PROVIDERS: PCP Family Medicine; Visit Provider Family Medicine
DX: Z00.00 Encounter for general adult medical examination without abnormal findings (principal); E78.5 Hyperlipidemia, unspecified; Z12.5 Encounter for screening for malignant neoplasm of prostate
CPT/HCPCS: 80053; 80061; 83036; 84153; 85025; G0103

== ENCOUNTER → 2023-02-07 | Outpatient (CLI) | payer OTHER, SELFPAY ==
[2023-02-07 15:16] LABS: Absolute Lymphocyte Count 1.66 X10^3/uL (0.83-4.51); Absolute Neutrophil Count 4.6 X10^3/uL (2.0-7.7); Basophil# 0.06 X10^3/uL; Basophil% 0.8 % (0-1); Eosinophil# 0.09 X10^3/uL; Eosinophils% 1.3 % (0-5); Hematocrit 45.1 % (40-54); Hemoglobin 14.7 g/dL (13.0-16.5); Lymphocyte # 1.66 X10^3/ul (0.83-4.51); Lymphocyte % 23.4 % (19-41); Mean Corp Hgb Conc 32.6 g/dL (32-36); Mean Corpuscular Hgb 30.4 pg (27.0-32.0); Mean Corpuscular Volume 93.2 fL (80-94); Mean Platelet Vol. 11.3 fl (6.2-12.0); Monocyte# 0.62 X10^3/uL; Monocyte% 8.8 % (0-10); NRBC Flagged by Analyzer 0 % (0-5); Neutrophil # 4.63 X10^3/uL (2.7-7.7); Neutrophil % 65.4 % (47-70); Platelet Count 224 K/mm3 (150-450); RBC Distribution Width CV 12.4 % (11.6-14.6); RBC Distribution Width SD 42.5 fl (35.1-43.9); Red Blood Count 4.84 M/mm3 (4.6-6.2); White Blood Count 7.1 K/mm3 (4.4-11.0)
[2023-02-07 15:45] LABS: AST(SGOT) 16 U/L (15-37); Alanine Aminotransfer ALT/SGPT 44 U/L (16-61); Albumin, Serum 3.5 g/dL (3.2-5.0); Alkaline Phosphatase 50 U/L (45-117); Anion Gap 5 (5-15); BUN 18 mg/dL (7-18); BUN/Creat Ratio 18.9 RATIO (10-20); Calcium,Total 9.2 mg/dL (8.5-10.1); Chloride 105 mmol/L (98-107); Creatinine, Serum 0.95 mg/dL (0.70-1.30); EST Glomerular Filtration Rate 86 mL/min (>60); Est Glom Filt Rate - Afr Amer 104 mL/min (>60); Ferritin 185 ng/mL (26-388); Globulin 3.4 g/dL (2.2-4.2); Glucose 102 mg/dL (74-106); Iron 83 ug/dL (65-175); Potassium 4.4 mmol/L (3.5-5.1); Protein, Total 6.9 g/dL (6.4-8.2); Sodium Level 139 mmol/L (136-145)
[2023-02-07 15:53] LABS: Vitamin B12 330 pg/mL (211-911)
[2023-02-07 16:21] LABS: Hemoglobin A1c 5.9 % (3.8-5.6)
== END | disposition home or self-care (01) ==
LOC: MTLAB 12:32
PROVIDERS: PCP Family Medicine; Referring Provider Family Medicine; Visit Provider Family Medicine
DX: R20.2 Paresthesia of skin (principal); E53.8 Deficiency of other specified B group vitamins; D64.9 Anemia, unspecified; R73.01 Impaired fasting glucose
CPT/HCPCS: 36415; 80053; 82607; 82728; 83036; 83540; 85025

== ENCOUNTER → 2023-06-15 | Outpatient (CLI) | payer OTHER, SELFPAY ==
--- NOTE | 2023-06-15 09:20 | RAD_ITS ---
STUDY: X-RAY - LUMBAR SPINE REASON FOR EXAM: Male, 58 years old. LUMBAR RADICULOPATHY TECHNIQUE: 4 view(s) of the lumbar spine were obtained. COMPARISON: None FINDINGS: Normal lumbar lordosis. There is no substantial scoliosis. There is a normal alignment of the vertebrae. There is multilevel endplate spondylosis of the lumbar vertebrae. Moderate degree of disc space narrowing at the L5-S1 level. The soft tissue structures are unremarkable. RAD/L/S Spine Min 4 Views IMPRESSION: Degenerative changes of the spine, as detailed above. Electronically Signed: Zhang Henderson MD at 14:36 EST ,
--- OUTSIDE RECORDS SUMMARY | 2023-06-15 09:38 | XMS RPT_ITS | CCD ---
Author Name Unknown Address [address] [place] [address] Organization [facility] Care Team Providers Care Dope Weigh Operator Name Role Phone LINETTE SNYDER SRoddy Attending Unavailable KASANDRA SNYDERSSICA S. Primary Care Unavailable LINETTE SNYDER S. Attending Unavailable KASANDRA SNYDERSSICA S. Primary Care Unavailable KASANDRA SNYDERSSICA S. Referring Unavailable LINETTE SNYDER S. Attending Unavailable KASANDRA SNYDERSSICA S. Primary Care Unavailable LILLIANKATHLEENLINETTE S. Attending Unavailable KASANDRA SNYDERSSICA S. Primary Care Unavailable KEVEN-TAKLA, DG N. Consulting Unavailabl e KEVEN-TAKLA, DG N. Attending Unavailabl e KATHLEEN SNYDERICA S. Primary Care Unavailable KEVEN-TAKLA, DG N. Attending Unavailabl e LILILAN LINETTE S. Primary Care Unavailable KEVEN-TAKLA, DG N. Attending Unavailabl e LILLIAN LINETTE S. Primary Care Unavailable LILLIANKASANDRALINETTE S. Attending Unavailable LILLIAN LINETTE S. Primary Care Unavailable KEVEN-TAKLA, DG N. Attending Unavailabl e LILLIAN LINETTE S. Primary Care Unavailable LILLIAN LINETTE S. Attending Unavailable KASANDRA SNYDERSSICA S. Primary Care Unavailable KEVEN-TAKLA, DG N. Attending Unavailabl e LILLIAN LINETET S. Primary Care Unavailable KASANDRA SNYDERSSICA S. Attending Unavailable KASANDRA SNYDERSSICA S. Primary Care Unavailable LILLIANKASANDRA STEINBERGSSICA S. Attending Unavailable LILLIAN, LINETTE S. Primary Care Unavailable Problems Problem Classification Problem Date Documented Da te Episodic/Chronic Essential hypertension (2 sources) Essential (primary) hypertension; Translations: [Essential (primary) hypertension] Onset: 08-23-2017 Chronic Other male genital disorders (2 sources) Male erectile dysfunction, unspecified; Translations: [Male erectile dysfunction, unspecified] Onset: 05-03-2018 Chronic Other screening for suspected conditions (not mental disorders or infectious disease) (2 sources) Encounter for screening for malignant neoplasm of prostate; Translations: [Encounter for screening for malignant neoplasm of prostate] Onset: 05-03-2018 Episodic Results Test Name Value Interpretation Reference Range Facil ity Encounters Encounter Date Encounter Type Care Provider Facility Start: 05-31-2018 End: 06-01-2018 Patient encounter procedure LINETTE SNYDER Facility:B Start: 05-03-2018 End: 05-08-2018 Patient encounter procedure LINETTE SNYDER Facility:[facility] Start: 01-09-2018 Patient encounter procedure DG BACA-TAKLA Facility:A Start: 01-09-2018 End: 01-10-2018 Patient encounter procedure LINETTE SNYDER Facility:[facility] Start: 01-06-2018 Patient encounter procedure DG BACA-TAKLA Facility:B Start: 12-16-2017 Patient encounter procedure DG BACA-TAKLA Facility:B Start: 11-25-2017 Patient encounter procedure DG BACA-TAKLA Facility:B Start: 11-03-2017 End: 11-03-2017 Patient encounter procedure DG BACA-TAKLA Facility:B Start: 09-08-2017 Patient encounter procedure LINETTE SNYDER Facility:A Start: 08-23-2017 End: 08-28-2017 Patient encounter procedure LINETTE SNYDER Facility:[facility] Start: 07-25-2017 End: 08-24-2017 Patient encounter procedure LINETTE SNYDER Facility:[facility] Start: 07-22-2017 End: 07-23-2017 Patient encounter procedure LINETTE SNYDER Facility:[facility] Payers Date Payer Category Payer Unknown [id number] 1965 Unknown [id number] 2.16.8 [id number] 1965 Unknown [id number] 2.16.8 [id number] 1965 Unknown [id number] 2.16.8 [id number] 1965 Unknown [id number] 2.16.8 [id number] 1965 Unknown [id number] 2.16.8 [id number] 1965 Unknown [id number] 2.16.8 [id number] 1965 Unknown [id number] 2.16.8 [id number] 1965 Unknown [id number] 2.16.8 [id number] 1965 Unknown [id number] 2.16.8 [id number] 1965 Unknown [id number] 2.16.8 [id number] 1965 Unknown [id number] 2.16.8 [id number] 1965 Unknown [id number] 2.16.8 [id number] 1965 Unknown [id number] 2.16.8 [id number] Progress note 07-03-2020 Note Date & Type Note Facility 07-03-2020 Note HNO ID: [id number] Author: Conrado Ortiz (Rt) Service: ? Author Type: Aircraft Seat Upholsterer Type: Progress Notes Filed: 07/03/2020 4:06 PM Note Text: Radiology Service Progress Note PATIENT NAME: Guillermina Kraft DATE OF SERVICE: July 03, 2020 TIME: 4:06 PM PATIENT IDENTITY VERIFICATION COMPLETED USING TWO (2) IDENTIFIERS: Name and Date of confirmed by patient verbally. FALL SCREENING: Has the patient had 2 falls in the last year or 1 fall with injury or currently using an Ambulatory Assistive Device (Walker, Cane, Wheelchair, Crutches, etc.)? No PATIENT GENDER DATA: Male PATIENT RELEVANT IMPLANT DATA REVIEWED: Not Applicable RADIOLOGY DEPARTMENT: General X-ray: Exam(s) Completed: Spine X-Ray(s): Cervical AP / LAT PERIPHERAL IV DATA: Not applicable SIGNED BY: RT Angel July 03, 2020 4:06 PM [facility] Summary Purpose Family History No Family History Records FoundNo Family History Records Found Advance Directives No Advanced Directives Records FoundNo Advanced Directives Records Found Additional Source Comments (unrecognized sect ion and content) No Status Records FoundNo Status Records Found INFORMATION SOURCE (unrecogn ized section and content) DATE CREATED AUTHOR AUTHOR'S ORGANIZ ATION 06/09/2021 [facility] FOR RECORDS PERTAINING TO PATIENTS WHO ARE OR HAVE BEEN ENROLLED IN A CHEMICAL DEPENDENCY/SUBSTANCEABUSE PROGRAM, SOME INFORMATION MAY BE OMITTED. This clinical summary was aggregated from multiple sources. Caution should be exercised in using it in the provision of clinical care. This summary normalizes information from multiple sources, and as a consequence, information in this document may materially change the coding, format and clinical context of patient data. In addition, data may be omitted in some cases. CLINICAL DECISIONS SHOULD BE BASED ON THE PRIMARY CLINICAL RECORDS. [employer] [facility]. provides no warranty or guarantee of the accuracy or completeness of information in this document.
== END | disposition home or self-care (01) ==
PROVIDERS: PCP Family Medicine; Referring Provider Family Medicine; Visit Provider Family Medicine
DX: M51.16 Intervertebral disc disorders with radiculopathy, lumbar region (principal)
CPT/HCPCS: 72110

== ENCOUNTER → 2024-01-09 | Outpatient (CLI) | payer OTHER, SELFPAY ==
[2024-01-09 12:48] LABS: AST(SGOT) 16 U/L (15-37); Alanine Aminotransfer ALT/SGPT 35 U/L (16-61); Albumin, Serum 3.4 g/dL (3.2-5.0); Alkaline Phosphatase 44 U/L (45-117); Bilirubin, Direct 0.11 mg/dL (0.00-0.30); Cholesterol 223 mg/dL (200); Globulin 3.5 g/dL (2.2-4.2); High Density Lipoprotein 51 mg/dL; Protein, Total 6.9 g/dL (6.4-8.2); Triglycerides 97 mg/dL; Very Low Density Lipoprotein 19 mg/dL (5-40)
== END | disposition home or self-care (01) ==
PROVIDERS: PCP Family Medicine; Referring Provider Physician Assistant Medical; Visit Provider Physician Assistant Medical
DX: E78.5 Hyperlipidemia, unspecified (principal)
CPT/HCPCS: 36415; 80061; 80076

== ENCOUNTER → 2024-04-04 | Outpatient (CLI) | payer OTHER, SELFPAY ==
[2024-04-04 12:16] LABS: Erythrocyte Sedimentation Rate 6 mm/hr (0-20)
[2024-04-04 12:40] LABS: Absolute Lymphocyte Count 1.15 X10^3/uL (0.83-4.51); Absolute Neutrophil Count 2.9 X10^3/uL (2.0-7.7); Basophil# 0.05 X10^3/uL; Basophil% 1.1 % (0-1); Eosinophil# 0.09 X10^3/uL; Hematocrit 45.1 % (40-54); Lymphocyte # 1.15 X10^3/ul (0.83-4.51); Lymphocyte % 25.2 % (19-41); Mean Corp Hgb Conc 33.3 g/dL (32-36); Mean Corpuscular Hgb 30.4 pg (27.0-32.0); Mean Corpuscular Volume 91.5 fL (80-94); Mean Platelet Vol. 11.5 fl (6.2-12.0); Monocyte# 0.35 X10^3/uL; Monocyte% 7.7 % (0-10); NRBC Flagged by Analyzer 0 % (0-5); Neutrophil # 2.92 X10^3/uL (2.7-7.7); Neutrophil % 63.8 % (47-70); Platelet Count 204 K/mm3 (150-450); RBC Distribution Width CV 12.5 % (11.6-14.6); Red Blood Count 4.93 M/mm3 (4.6-6.2); White Blood Count 4.6 K/mm3 (4.4-11.0)
[2024-04-04 12:50] LABS: ALB/GLOB Ratio 1.1 RATIO (0.9-2.4); AST(SGOT) 32 U/L (15-37); Alanine Aminotransfer ALT/SGPT 79 U/L (16-61); Albumin, Serum 3.6 g/dL (3.2-5.0); Alkaline Phosphatase 49 U/L (45-117); Anion Gap 6 (5-15); BUN 20 mg/dL (7-18); BUN/Creat Ratio 25.8 RATIO (10-20); CRP < 2.90 mg/L (0.0-3.0); Calcium,Total 9.3 mg/dL (8.5-10.1); Chloride 106 mmol/L (98-107); Cholesterol 154 mg/dL (200); Creatinine, Serum 0.78 mg/dL (0.70-1.30); EST Glomerular Filtration Rate 108 mL/min (>60); Est Glom Filt Rate - Afr Amer 131 mL/min (>60); Globulin 3.4 g/dL (2.2-4.2); Glucose 100 mg/dL (74-106); High Density Lipoprotein 53 mg/dL; Potassium 4.2 mmol/L (3.5-5.1); Rheumatoid Factor < 10.0 IU/mL (<15); Sodium Level 138 mmol/L (136-145); Triglycerides 133 mg/dL; Very Low Density Lipoprotein 27 mg/dL (5-40)
[2024-04-04 13:03] LABS: Vitamin D,25 Hydroxy 81.9 ng/mL
[2024-04-05 15:08] LABS: ANTINUCLEAR ANTIBODIES DIRECT Negative (Negative)
[2024-04-05 16:10] LABS: CCP IgG Antibodies 8 units (0-19)
== END | disposition home or self-care (01) ==
LOC: BFHLAB 09:59
PROVIDERS: PCP Family Medicine; Referring Provider Family Medicine; Visit Provider Family Medicine
DX: E11.9 Type 2 diabetes mellitus without complications (principal); M25.50 Pain in unspecified joint; M79.10 Myalgia, unspecified site; Z51.81 Encounter for therapeutic drug level monitoring; E55.9 Vitamin D deficiency, unspecified
CPT/HCPCS: 36415; 80053; 80061; 82306; 85025; 85652; 86038; 86140; 86200; 86225; 86235; 86431

== ENCOUNTER → 2024-07-30 | Outpatient (CLI) | payer OTHER, SELFPAY ==
[2024-07-30 16:25] LABS: PSA,Total - Annual Screen 2.15 ng/mL (0.02-4.00)
== END | disposition home or self-care (01) ==
LOC: LAB 14:59
PROVIDERS: PCP Family Medicine; Referring Provider Nurse Practitioner; Visit Provider Nurse Practitioner
DX: Z12.5 Encounter for screening for malignant neoplasm of prostate (principal)
CPT/HCPCS: 36415; 84153; G0103

== ENCOUNTER → 2024-08-09 | Outpatient (CLI) | payer OTHER, SELFPAY ==
--- NOTE | 2024-08-09 09:20 | RAD_ITS ---
EXAM: XR Bilateral Hips With Pelvis When Performed, 2 or 3 Views CLINICAL INDICATION: PAIN TECHNIQUE: Three or four views of the bilateral hips with pelvis when performed. COMPARISON: No relevant prior studies available. FINDINGS: BONES/JOINTS: Mild degenerative changes of the hip joints, bilaterally. No acute fracture. No dislocation. SOFT TISSUES: Unremarkable. RAD/Hips B/L min 2 views w/ Pelvis IMPRESSION: Degenerative changes as above. Reading Location: [facility]
== END | disposition home or self-care (01) ==
LOC: MTRAD 09:19
PROVIDERS: PCP Family Medicine; Referring Provider Family Medicine; Visit Provider Family Medicine
DX: M25.551 Pain in right hip (principal); M25.552 Pain in left hip
CPT/HCPCS: 73521

== ENCOUNTER → 2024-09-10 | Outpatient (CLI) | payer OTHER, SELFPAY ==
--- NOTE | 2024-09-10 13:23 | MRI_ITS ---
PROCEDURE: SPINE LUMBAR (ROUTINE) 09/10/2024 REASON FOR EXAM: RADICULOPATHY TECHNIQUE: Multiplanar and multisequence images were obtained without IV contrast administration. COMPARISON: January 12, 2018 FINDINGS: The vertebral body alignment is maintained. The vertebral body height is maintained. Vertebral body marrow signal is normal. Intervertebral disc signal shows mild desiccation. Normal appearing facets are noted. A 1.2 cm hemangioma is noted at L4, unchanged. The L1-L2 level: There is no significant disk protrusion. There is no lateral recess stenosis or foraminal stenosis. There is no critical central canal stenosis. The L2-L3 level: There is mild central and right and left paracentral disc protrusion with increased signal in the right margin of the disc consistent with a fissure. There is no lateral recess stenosis or foraminal stenosis. There is no critical central canal stenosis. The L3-L4 level: There is mild central and right and left paracentral disk protrusion. There is no lateral recess stenosis or foraminal stenosis. There is no critical central canal stenosis. The L4-L5 level: There is moderate central and right and left paracentral disc and osteophyte protrusion with increased signal in the margin of the disc consistent with a fissure. There is mild bilateral lateral recess effacement. There is mild bilateral foraminal narrowing secondary to disc protrusion and facet hypertrophy. There is mild central canal stenosis. The L5-S1 level: There is minimal central disk protrusion. There is no lateral recess stenosis or foraminal stenosis. There is no critical central canal stenosis. The visualized conus shows normal signal characteristics. Adjacent soft tissues are unremarkable. A 5 cm cyst is partly visible in the left kidney. MRI/Spine Lumbar (Routine) IMPRESSION: A 5 cm cyst is partly visible in the left kidney. There is mild central canal stenosis at L4-5, with lateral recess and foraminal narrowing, similar to the prior. Reading Location: [place]
== END | disposition home or self-care (01) ==
PROVIDERS: PCP Family Medicine; Referring Provider Family Medicine; Visit Provider Family Medicine
DX: M51.16 Intervertebral disc disorders with radiculopathy, lumbar region (principal)
CPT/HCPCS: 72148

== ENCOUNTER → 2025-01-02 | Outpatient (CLI) | payer OTHER, SELFPAY ==
[2025-01-02 12:32] LABS: Hematocrit 44.7 % (40-54); Hemoglobin 15.2 g/dL (13.0-16.5); Immature Granulocytes Count 0.010 X10^3/uL (0.0-0.0); Mean Corp Hgb Conc 34.0 g/dL (32-36); Mean Corpuscular Volume 91.6 fL (80-94); Mean Platelet Vol. 11.1 fl (6.2-12.0); NRBC Flagged by Analyzer 0 % (0-5); Platelet Count 206 K/mm3 (150-450); RBC Distribution Width CV 12.3 % (11.6-14.6); RBC Distribution Width SD 41.9 fl (35.1-43.9); Red Blood Count 4.88 M/mm3 (4.6-6.2); White Blood Count 5.2 K/mm3 (4.4-11.0)
[2025-01-02 13:02] LABS: Creatinine, Urine (random) 158.00 mg/dL (39.00-259.00); Microalbumin,Random Urine < 12.0 mg/L (<20 mg/L)
[2025-01-02 13:29] LABS: AST(SGOT) 26 U/L (<=37); Alanine Aminotransfer ALT/SGPT 38 U/L (<=46); Albumin, Serum 4.1 g/dL (3.4-4.8); Alkaline Phosphatase 47 U/L (40-129); Anion Gap 10 (5-15); BUN 22 mg/dL (4-19); BUN/Creat Ratio 28.5 RATIO (10-20); Calcium,Total 9.4 mg/dL (7.6-11.0); Carbon Dioxide 27.3 mmol/L (21.0-32.0); Chloride 105 mmol/L (98-108); Cholesterol 170 mg/dL (<=200); Globulin 2.6 g/dL (2.2-4.2); Glucose 104 mg/dL (70-99); Low Density Lipoprotein Calc. 87 mg/dL; Potassium 4.2 mmol/L (3.3-5.1); Triglycerides 151 mg/dL; Very Low Density Lipoprotein 30 mg/dL (5-40); Vitamin D,25 Hydroxy 39.6 ng/mL (30-100); cholesterol:hdl ratio screen 3.21
== END | disposition home or self-care (01) ==
LOC: BFHLAB 09:28
PROVIDERS: PCP Family Medicine; Visit Provider Family Medicine
DX: E11.9 Type 2 diabetes mellitus without complications (principal); I10 Essential (primary) hypertension; E55.9 Vitamin D deficiency, unspecified; Z51.81 Encounter for therapeutic drug level monitoring
CPT/HCPCS: 36415; 80053; 80061; 82043; 82306; 82570; 85025